=== PATIENT | female | born 1950 | race Caucasian/White ===

== ENCOUNTER → 2017-02-24 | Outpatient (CLI) | payer MEDICARE, BC ==
--- NOTE | 2017-02-25 10:06 | MM ---
Reason for exam: screening (asymptomatic). Last mammogram was performed 3 years and 1 month ago. History: Patient is postmenopausal. Physical Findings: A clinical breast exam by your physician is recommended on an annual basis and results should be correlated with mammographic findings. MG 3D Screening Mammo W/Cad Bilateral CC and MLO view(s) were taken. Prior study comparison: January 13, 2014, bilateral digital screening mammo w/CAD. There are scattered fibroglandular densities. No significant changes when compared with prior studies. ASSESSMENT: Benign, BI-RAD 2 RECOMMENDATION: Routine screening mammogram of both breasts in 1 year.
== END | disposition home or self-care (01) ==
LOC: RADMAMWWP 15:03
PROVIDERS: ATTEND Internal Medicine
DX: Z12.31 Encounter for screening mammogram for malignant neoplasm of breast (principal)
CPT/HCPCS: 77063; G0202

== ENCOUNTER → 2019-09-06 | Outpatient (CLI) | payer MEDICARE, BC ==
--- NOTE | 2019-09-06 11:03 | XR ---
EXAMINATION TYPE: XR lumbosacral spine min 4V DATE OF EXAM: 09/06/2019 CLINICAL HISTORY: Back pain TECHNIQUE: Frontal, lateral, and oblique images of the lumbar spine are obtained. COMPARISON: None FINDINGS: There is a levoscoliosis of the lumbar spine. Moderate multilevel degenerative disc disease is seen as small anterior osteophytes, intervertebral disc space narrowing, and multilevel pronounce d facet arthropathy from L3 through S1. Very minimal 1 mm anterolisthesis is seen of L4 on L5. Mild a therosclerosis of the abdominal aorta. Vertebral body heights are maintained. Oblique images demonstr ate no evidence of pars and articularis defect. Multilevel neural foraminal narrowing is seen that wo uld be better evaluated on MRI. Diffuse osseous demineralization is seen. No overlying dilated bowel. Sacroiliac joints are symmetric. IMPRESSION: 1. No acute fracture is seen in the lumbar spine. 2. Mild levoscoliosis of the lumbar spine. 3. Moderate multilevel degenerative disc disease with pronounced facet arthropathy of the lower lumba r spine from L3 through S1. 4. Minimal grade 1 anterolisthesis of L4-L5, likely on a degenerative cyst.
== END | disposition home or self-care (01) ==
LOC: RADXRYALE 10:08
PROVIDERS: ATTEND Internal Medicine
DX: M43.16 Spondylolisthesis, lumbar region (principal); M51.37 Other intervertebral disc degeneration, lumbosacral region; M46.97 Unspecified inflammatory spondylopathy, lumbosacral region; M41.86 Other forms of scoliosis, lumbar region
CPT/HCPCS: 72110

== ENCOUNTER → 2020-07-13 | Outpatient (CLI) | payer MEDICARE, BC ==
[2020-07-13 15:03] VITALS: RESP 16; BMI 39.0
[2020-07-13 15:36] LABS: HCT 40.7 % (34.0-46.0); HGB 12.9 gm/dL (11.4-16.0); MCH 29.1 pg (25.0-35.0); MCHC 31.8 g/dL (31.0-37.0); MCV 91.6 fL (80.0-100.0); Mean Platelet Volume 7.8; Platelet Count 299 k/uL (150-450); RBC 4.44 m/uL (3.80-5.40); WBC 8.7 k/uL (3.8-10.6)
[2020-07-13 15:45] VITALS: BP 162/82; PULSE 77; TEMP 98.1
[2020-07-13 19:05] LABS: Albumin 4.3 g/dL (3.80-4.90); Albumin/Globulin Ratio 2.05 (1.60-3.17); Calcium 9.6 mg/dL (8.7-10.3); Globulin 2.1 g/dL (1.6-3.3); Non-African American GFR(CKD) 74.2 (60.0-200.0); Potassium 4.4 mmol/L (3.5-5.5); Total Bilirubin 0.3 mg/dL (0.2-1.2); Total Protein 6.4 g/dL (6.2-8.2)
--- NOTE | 2020-07-13 19:11 | P.HPBAR ---
Bariatric H&P - History & Physicial H&P Date: 07/13/20 History & Physicial: Visit/CC: Initial Patient initial contact: Initial weight: 109.769 kg Initial weight in pounds: 242.00 Height: 5 ft 6 in Initial BMI: 39.0 Last weight: Current weight: 109.769 kg Current weight in pounds: 242.00 Current BMI: 39.0 [place] body weight (based on NIH guidelines): 58.967 kg Excess body weight loss: 0.0% The patient is a 69 year-old F who presents for Bariatric Assessment. Patient presents today with her . They're both here for a new bariatric evaluation. She is most interested in sleeve gastrectomy. Patient suffers from hypertension, hypercholesterolemia, ostial arthritis, chronic back pain, mild reflux. No history of DVT or dysphagia. No tobacco use. BMI 39. Abdominal surgeries including hysterectomy. States she had an upper endoscopy approximately 5 years ago which was normal. Review of Systems The patient denies any acute changes in vision or hearing, no dysphagia or odynophagia, no chest pain or shortness of breath, no dysuria or hematuria, no headache, no runny nose, no rectal bleeding or melena, no unexplained weight loss Past Medical History Past Medical History: Hyperlipidemia, Hypertension, Osteoarthritis (OA) History of Any Multi-Drug Resistant Organisms: None Reported Past Surgical History: Bladder Surgery, Hysterectomy Additional Past Surgical History / Comment(s): bladder suspension Past Anesthesia/Blood Transfusion Reactions: No Reported Reaction Past Psychological History: No Psychological Hx Reported Smoking Status: Never smoker Past Drug Use History: None Reported Surgical - Exam Vital Signs Temp Pulse Resp BP 98.1 F 77 16 162/82 07/13/20 14:59 07/13/20 14:59 07/13/20 14:59 07/13/20 14:59 Physical exam: General: Well-developed, well-nourished HEENT: Normocephalic, sclerae nonicteric Abdomen: Nontender, nondistended Extremities: No edema Neuro: Alert and oriented Results - Labs 07/13/20 15:11 07/13/20 15:11 Abnormal Lab Results - Last 24 Hours (Table) 07/13/20 Range/Units 15:11 BUN/Creatinine Ratio 25.00 H (12.00-20.00) Ratio Iron 42 L (50-170) ug/dL Diabetes panel 07/13/20 Range/Units 15:11 Sodium 143 (135-145) mmol/L Potassium 4.4 (3.5-5.5) mmol/L Chloride 109 (96-109) mmol/L Carbon Dioxide 27.0 (21.6-31.8) mmol/L BUN 20.0 (9.0-27.0) mg/dL Creatinine 0.8 (0.6-1.5) mg/dL Glucose 108 (70-110) mg/dL Calcium 9.6 (8.7-10.3) mg/dL AST 21 (13-35) U/L ALT 19 (8-44) U/L Alkaline Phosphatase 87 (41-126) U/L Total Protein 6.4 (6.2-8.2) g/dL Albumin 4.30 (3.80-4.90) g/dL Calcium panel 07/13/20 Range/Units 15:11 Calcium 9.6 (8.7-10.3) mg/dL Albumin 4.30 (3.80-4.90) g/dL Pituitary panel 07/13/20 Range/Units 15:11 Sodium 143 (135-145) mmol/L Potassium 4.4 (3.5-5.5) mmol/L Chloride 109 (96-109) mmol/L Carbon Dioxide 27.0 (21.6-31.8) mmol/L BUN 20.0 (9.0-27.0) mg/dL Creatinine 0.8 (0.6-1.5) mg/dL Glucose 108 (70-110) mg/dL Calcium 9.6 (8.7-10.3) mg/dL Adrenal panel 07/13/20 Range/Units 15:11 Sodium 143 (135-145) mmol/L Potassium 4.4 (3.5-5.5) mmol/L Chloride 109 (96-109) mmol/L Carbon Dioxide 27.0 (21.6-31.8) mmol/L BUN 20.0 (9.0-27.0) mg/dL Creatinine 0.8 (0.6-1.5) mg/dL Glucose 108 (70-110) mg/dL Calcium 9.6 (8.7-10.3) mg/dL Total Bilirubin 0.3 (0.2-1.2) mg/dL AST 21 (13-35) U/L ALT 19 (8-44) U/L Alkaline Phosphatase 87 (41-126) U/L Total Protein 6.4 (6.2-8.2) g/dL Albumin 4.30 (3.80-4.90) g/dL Bariatric Assessment & Plan (1) Morbid obesity Narrative/Plan: 69-year-old female with complaints of obesity. She is interested in sleeve gastrectomy. Risks and benefits of the surgical options reviewed in detail with the patient today. All questions answered. We'll proceed with upper endoscopy in the near future. We'll see the patient back in the office prior to surgical scheduling. Status: Acute Bariatric Checklist Checklist: Plan: Checklist: EGD: 1. Hiatal hernia: 2. H. Pylori: HgbA1c: Vitamin D: Smoking: Primary care physician referral: Mario Psychiatry clearance: Cardiology clearance: Sleep study: Diet journal: VTE risk score: VTE risk level: Rehab needs at discharge:
[2020-07-13 19:50] LABS: Folate, Serum 10.9 ng/mL
== END | disposition home or self-care (01) ==
LOC: BARWHC3 14:38
PROVIDERS: ATTEND Surgery
DX: E66.01 Morbid (severe) obesity due to excess calories (principal); Z68.39 Body mass index [BMI] 39.0-39.9, adult; K90.89 Other intestinal malabsorption
CPT/HCPCS: 84425; 80053; 82607; 82746; 83540; 85027; 82306; 83036; 93005; 36415; G0463; 99201

== ENCOUNTER → 2021-05-14 | Outpatient (CLI) | payer MEDICARE, BC ==
--- NOTE | 2021-05-16 14:55 | MM ---
Reason for exam: screening (asymptomatic). Last mammogram was performed 4 years and 3 months ago. History: Patient is postmenopausal. Physical Findings: A clinical breast exam by your physician is recommended on an annual basis and results should be correlated with mammographic findings. MG 3D Screening Mammo W/Cad Bilateral CC, MLO, and XCCL view(s) were taken. Prior study comparison: February 24, 2017, bilateral MG 3d screening mammo w/cad. January 13, 2014, bilateral digital screening mammo w/CAD. The breast tissue is almost entirely fat. No significant changes when compared with prior studies. ASSESSMENT: Benign, BI-RAD 2 RECOMMENDATION: Routine screening mammogram of both breasts in 1 year.
== END | disposition home or self-care (01) ==
LOC: RADMAMWWP 14:57
PROVIDERS: ATTEND Internal Medicine
DX: Z12.31 Encounter for screening mammogram for malignant neoplasm of breast (principal); Z78.0 Asymptomatic menopausal state
CPT/HCPCS: 77063; 77067

== ENCOUNTER → 2021-06-04 | Outpatient (CLI) | payer MEDICARE, BC | END | disposition home or self-care (01) | CPT/HCPCS: 76700 ==

== ENCOUNTER → 2021-10-16 | Outpatient (CLI) | payer MEDICARE, BC ==
--- NOTE | 2021-10-17 04:36 | US ---
EXAMINATION TYPE: US venous doppler duplex LE RT DATE OF EXAM: 10/16/2021 4:08 PM COMPARISON: NONE CLINICAL HISTORY: 70-year-old female R22.41 Swelling right leg. SIDE PERFORMED: Right TECHNIQUE: The lower extremity deep venous system is examined utilizing real time linear array sonog kael with graded compression, doppler sonography and color-flow sonography. FINDINGS: VESSELS IMAGED: Common Femoral Vein Deep Femoral Vein Greater Saphenous Vein * Femoral Vein Popliteal Vein Small Saphenous Vein * Proximal Calf Veins (* superficial vessels) Right Leg: Negative for DVT Console Operator notes: Probable Serrato's cyst measuring 1.6 x 1.3 x 1.3cm IMPRESSION: 1. No evidence for DVT within the right lower extremity imaged from the groin to the upper calf. 2. A 1.6 cm fluid locule in the popliteal fossa may represent a Serrato's cyst. Consider MRI to confirm .
== END | disposition home or self-care (01) ==
LOC: RADUSWWP 15:39
PROVIDERS: ATTEND Internal Medicine
DX: R22.41 Localized swelling, mass and lump, right lower limb (principal)

== ENCOUNTER → 2023-11-18 | Outpatient (CLI) | payer MEDICARE, BC ==
--- NOTE | 2023-11-18 17:42 | BD ---
EXAMINATION TYPE: Axial Bone Density DATE OF EXAM: 11/18/2023 CLINICAL HISTORY: 72 years old Female. ICD-10 CODE: N95.1 MENOPAUSAL AND PERIMENOPAUSAL Height: 64 Weight: 221.3 FRAX RISK QUESTIONS: Alcohol (3 or more units per day): no Family History (Parent hip fracture): no Glucocorticoids (More than 3mos): no (Ex: prednisone, prednisolone, methylprednisolone, dexamethasone, and hydrocortisone). History of Fracture in Adulthood: no Secondary Osteoporosis: 1. Type 1 Diabetes: no 2. Hyperthyroidism: no 3. Menopause before 45: no 4. Malnutrition: no 5. Chronic liver disease: no Rheumatoid Arthritis: no Current Tobacco Use: no RISK FACTORS HISTORY OF: Surgery to Spine/Hip(right/left)/Wrist (right/left): no Additional History: EXAM MEASUREMENTS: Bone mineral densitometry was performed using the [employer] System. Bone mineral density as measured about the Lumbar spine is: ----- L1-L4(G/cm2): 1.458 T Score Values are as follows: ----- L1: 0.7 ----- L2: 1.3 ----- L3: 2.9 ----- L4: 3.9 ----- L1-L4: 2.3 Z Score Values are as follows: ----- L1: 1.3 ----- L2: 1.9 ----- L3: 3.5 ----- L4: 4.5 ----- L1-L4: 2.9 Bone mineral density : baseline Bone mineral density about the R hip (g/cm2): 0.992 Bone mineral density about the L hip (g/cm2): 0.981 T Score values are as follows: -----R Neck: -1.1 -----L Neck: -0.9 -----R Total: -0.1 -----L Total: -0.2 Z Score values are as follows: -----R Neck: 0.1 -----L Neck: 00.3 -----R Total: 0.8 -----L Total: 0.7 Bone mineral density : baseline FRAX%s: The graph provided illustrates a 8.8% chance for a major osteoporotic fx and a 1.3% chance fo r the hips probability for fx in 10 years time. IMPRESSION: Osteopenia (T Score between -2.5 and -1). There is slightly increased risk of fracture and the patient may be considered for treatment. Re-Screen 2-5 years. NOTE: T-SCORE=SD OF THE YOUNG ADULT MEAN.
--- NOTE | 2023-11-19 17:12 | MM ---
Reason for Exam: Screening (asymptomatic). Last mammogram was performed 2 year(s) and 6 month(s) ago. Patient History: Menarche at age 12. First Full-Term at age 18. Hysterectomy at age 63. Postmenopausal. Risk Values: Heidy 5 year model risk: 1.4%. NCI Lifetime model risk: 3.3%. Prior Study Comparison: 01/13/2014 Bilateral Screening Mammogram, [facility]. 02/24/2017 Bilateral Screening Mammogram, [facility]. 05/14/2021 Bilateral Screening Mammogram, [facility]. Tissue Density: There are scattered fibroglandular densities. Findings: Analyzed By CAD. There is no suspicious group of microcalcifications or new suspicious mass in either breast. Overall Assessment: Negative, BI-RAD 1 Management: Screening Mammogram of both breasts in 1 year. . Patient should continue monthly self-breast exams. A clinical breast exam by your physician is recommended on an annual basis. This exam should not preclude additional follow-up of suspicious palpable abnormalities. Note on Heidy scores and lifetime risk: 1. A Heidy score greater than 3% is considered moderate risk. If this is the case, consider specialist referral to assess eligibility for a risk reducing agent. 2. If overall lifetime risk for the development of breast cancer is 20% or higher, the patient may qualify for future screening with alternating mammogram and breast MRI. Electronically signed and approved by: Anna Griffiths M.D. Radiologist
== END | disposition home or self-care (01) ==
LOC: RADBDWWP 12:28
PROVIDERS: ATTEND Internal Medicine
DX: Z12.31 Encounter for screening mammogram for malignant neoplasm of breast (principal); N95.8 Other specified menopausal and perimenopausal disorders; M85.851 Other specified disorders of bone density and structure, right thigh; Z78.0 Asymptomatic menopausal state
CPT/HCPCS: 77063; 77067; 77080

== ENCOUNTER → 2023-12-18 | Outpatient (CLI) | payer MEDICARE, BC ==
--- NOTE | 2023-12-18 13:04 | XR ---
EXAMINATION TYPE: XR lumbosacral spine 5 views DATE OF EXAM: 12/18/2023 Comparison: 09/06/2019 Clinical History: 72-year-old female [id number] LBP Findings: Moderate degenerative disc disease L5-S1 with disc space narrowing and endplate spondylosis/sclerosis . There is advanced hypertrophic facet arthropathy especially mid to lower lumbar spine. Degenerative grade 1 retrolisthesis L2-L3 and grade 1 anterolisthesis L4-L5. Vertebral body heights a re preserved. Slight rotary levoconvex curvature of the lumbar spine redemonstrated. There appears to be a slightly degenerative assimilation joint on the left at L5-S1. Impression: 1. Slight rotary levoconvex scoliosis lumbar spine. There appears to be a degenerative assimilation j oint on the left at L5-S1. 2. Advanced hypertrophic facet arthropathy especially mid to lower lumbar spine. Degenerative grade 1 spondylolisthesis L2/L3 and L4-L5. 3. Moderate degenerative disc disease L5-S1. 4. No vertebral compression collapse.
== END | disposition home or self-care (01) ==
LOC: RADXRYALE 09:02
PROVIDERS: ATTEND Internal Medicine
DX: M51.37 Other intervertebral disc degeneration, lumbosacral region (principal); M47.816 Spondylosis without myelopathy or radiculopathy, lumbar region; M43.16 Spondylolisthesis, lumbar region; M41.86 Other forms of scoliosis, lumbar region
CPT/HCPCS: 72110

== ENCOUNTER → 2024-01-10 | Outpatient (CLI) | payer MEDICARE, BC ==
--- NOTE | 2024-01-10 15:44 | MR ---
EXAMINATION TYPE: MR lumbar spine wo con DATE OF EXAM: 01/10/2024 COMPARISON: Outside lumbar spine x-ray series 06/19/2024 HISTORY: Low back pain, saurabh hip/leg pain TECHNIQUE: Multiplanar, multisequence imaging of the lumbar spine is performed without IV contrast. FINDINGS: Scoliosis is redemonstrated. Persistent grade 1 anterolisthesis L4 on L5. Sagittal images o f the lumbar spine show vertebral body heights to remain satisfactory. Multilevel disc desiccation is redemonstrated. Mild disc space narrowing at L3-L4 level is again seen. Moderate disc space narrowin g at L5-S1 level is redemonstrated with heterogeneous Modic type II endplate changes along the left a spect. The conus medullaris is normal in position and signal ending at L1-L2 level. Axial images at T12-L1 level appear within normal limits. Axial images at L1-L2 level shows mild broad-based disc bulge minimally effacing the anterior thecal sac along with mild facet arthropathy bilaterally. Mild effacement of the right posterior lateral the cesar sac is seen. Patent bilateral neural foramina. Axial images at L2-L3 level show mild to moderate facet arthropathy ligamentum flavum hypertrophy eff acing the posterior lateral thecal sac. Pain bilateral neural foramina are seen. Axial images at L3-L4 level shows mild/moderate broad-based posterior disc protrusion effacing anteri or thecal sac. There is moderate facet arthropathy and ligamentum flavum hypertrophy effacing the pos terolateral thecal sac greater on the right. There is mild bilateral neural foraminal narrowing. Axial images at L4-L5 level show spondylolisthesis with broad-based posterior disc protrusion minimal ly effacing anterior thecal sac along with moderate facet arthropathy and ligament hypertrophy effaci ng the posterior lateral thecal sac. Bilateral neural foramina are patent. Axial images at L5-S1 level shows mild/moderate left greater than right facet arthropathy. There is b road-based posterior disc protrusion with left lateral protrusion component causing advanced neural f oraminal narrowing and encroachment on the left L5 nerve. Right-sided neural foramina is patent. Paraspinal muscle bulk is maintained. Some simple central parapelvic cysts in the left kidney are fel t likely. There is round 8 mm T2 hypointense lesion in the right kidney axial image 26 could reflect thin-walled proteinaceous or hemorrhagic cyst. IMPRESSION: Multilevel degenerative changes in the lumbar spine as detailed above. Attention to the L 5-S1 level where eccentric disc herniation causes encroachment on the left L5 nerve. Correlate clinic ally for left L5 radiculopathy type symptoms.
== END | disposition home or self-care (01) ==
LOC: RADMRIMAIN 14:35
PROVIDERS: ATTEND Orthopaedic Surgery
DX: M47.816 Spondylosis without myelopathy or radiculopathy, lumbar region (principal); M51.27 Other intervertebral disc displacement, lumbosacral region
CPT/HCPCS: 72148

== ENCOUNTER → 2024-03-10 | Outpatient (CLI) | payer MEDICARE, BC ==
[2024-03-10 10:54] VITALS: BP 180/111; PULSE 77; RESP 15; TEMP 98.5
--- NOTE | 2024-03-10 13:48 | P.PAINPG ---
PQRS Measure Charge Sheet Comment: HISTORY OF PRESENT ILLNESS: A 73 yr old female w at side as a referral from [facility] presents today w severe and chronic LBP x 3 mo secondary to DDD, spondylosis and facet arthropathy without myelopathy for evaluation. Pt is interested in an injection before she goes forward w a decision about surgery. Pt states pain level is provoked at 9 /10 in intensity, constant, localized in the lumbar spine, predominantly axial, achy in character w occasional shooting pain towards the LLE. Pain is provoked by PT x 2 visits in 2022 which provoked intractable pain, standing and laying supine in certain positions. Pain is alleviated by heat, ice, medications (Naproxen, Flexeril 5mg #90, Neurontin 150mg #60), repositioning and rest. Oswestry axial pain score at 28. PMH: OA, Hyperlipidemia, HTN, GERD, OP, OAB PSH: Bladder Suspension, Hysterectomy SH: Negative x3 FH: Non contributory All: See list Meds: See list REVIEW OF ORGAN SYSTEMS: CONSTITUTIONAL: No fevers or chills. No recent weight loss. NEUROLOGICAL: + numbness and tingling along the distal extremities. No seizure disorders or headaches. MUSCULOSKELETAL: + pain PSYCHIATRIC: Denies current depression or suicidal tho ughts. Physical Examinations : Constitutional : Cooperative , not in acute distress . Neurologic : Cranial nerve II to XII intact. No focal neurological deficits. Psychiatric : alert & oriented x 3. Matching mood & appropriate affect. Judgment & insight intact. Musculoskeletal : Cervical Spine Motor strength in the deltoid and biceps: Normal right side. Normal Left side Motor strength biceps and the wrist extensors: Normal right side . Normal left side Motor strength in the triceps muscle: Normal right side. Normal left side Deep tendon reflexes: Normal at the biceps. Normal at Brachioradialis. Normal at triceps Vertebral body tenderness to deep palpation over Cervical facet loading test: positive bilaterally Spurling test: positive bilaterally Neck distraction test: positive bilaterally Camille sign: positive bilaterally Lumbar spine Motor strength lower extremities ,thigh and legs 5/5 Right side , 5/5 Left side Deep tendon reflexes : Normal Knee Jerk. Normal Ankle Jerk Vertebral body tenderness over L5 Shelton Test positive L5-S1 Lumbar facet Loading Test: positive Right / positive Left Range of motion of the lumbar spine Flexion 30 degrees, extension 10 degrees Straight Leg Raise test: Left/ Right positive at degree Simin test: positive right / positive left. Severe tenderness over the Sacroiliac joint on the Right / Left sides Gaenslen test: positive bilaterally Seated flexion test: positive bilaterally. Sacral spine : Severe tenderness over the Sacroiliac joint: right side / left side Range of motion: Flexion of the lumbar spine <60 degrees Range of motion: Extension of the lumbar spine <20 degrees Gaenslen's Test positive Simin test: positive right side / left side Thigh Thrust Test Sacral Thrust Test Imaging: MRI noncontrast of the lumbar spine from 01/10/2024 reviewed Assessment/ Plan : Lumbar DDD Recommendation of OTONIEL L5-S1 #1. May need a series of injections for optimal pain relief. Risks, benefits of procedure discussed and patient verbalized understanding. Admits to anti- coagulant use or medical history of diabetes. Protocol for discontinuation/ continuation of medications giana procedure discussed. All questions answered. I have spent greater than 30 minutes on patient care today. Dr Ortez was available by phone for the evaluation of this patient. The time was used to review the medical records including relevant urine studies and Prescription history (MAPs), review of the available imaging, evaluation and examination of the patient, coordination of care with the medical staff and if applicable referring physicians, as well as creation of the medical record Home Medications: Ambulatory Orders Ascorbic Acid [Vitamin C] 500 mg PO DAILY 07/13/20 Aspirin 81 mg PO BID 07/13/20 Calcium Carbonate [Calcium] 600 mg PO DAILY 07/13/20 Iron 64 mg PO DAILY 07/13/20 Naproxen [Naprosyn] 500 mg PO DIRECTED 07/13/20 Pravastatin Sodium [Pravachol] 40 mg PO DAILY 07/13/20 amLODIPine BESYLATE/BENAZEPRIL [amLODIPine BESYLATE/BENAZEPRIL 5-10 MG] 1 tab PO DAILY 07/13/20 oxyBUTYnin chloride [Ditropan] 5 mg PO DAILY 07/13/20 Controlled Substance Measures - Controlled Substance Measures Is patient prescribed a controlled substance at discharge?: No
== END ==
LOC: PNWHC3 09:34
PROVIDERS: ATTEND Specialist
DX: M51.37 Other intervertebral disc degeneration, lumbosacral region (principal)
CPT/HCPCS: 99211

== ENCOUNTER 2024-03-16 08:15 | Day surgery (SDC) | payer MEDICARE, BC ==
[2024-03-12 13:39] VITALS: BMI 33.3
[~2024-03-16 08:15] MED LIST: LACTATED RINGERS 1,000 ML IV SCH
[2024-03-16 09:27] VITALS: TEMP 97.5
[2024-03-16] MEDS ORDERED: methylPREDNISolone ACETATE 40 MG/ML 1 ML VIAL ONE (09:40)
[2024-03-16] MEDS ORDERED: IOPAMIDOL M200 10 ML VIAL ONE (09:40)
--- NOTE | 2024-03-16 09:47 | P.PCN ---
Date of Procedure: 03/16/24 Procedure(s) Performed: PREOPERATIVE DIAGNOSIS: 1- Lumbar Degenerative Disc Diseases 2-Lumbar spondylosis with Facet arthropathy without myelopathy. POSTOPERATIVE DIAGNOSIS: 1-lumbar degenerative disc disease. 2-lumbar spondylosis with facet arthropathy without myelopathy. PROCEDURE 1. Lumbar epidural steroid injection under fluoroscopic guidance at the L5-S1 level. (Fluoroscopy imaging was available in radiology department) 2. Lumbar epidurogram. ANESTHESIA: Lidocaine 1% 3 and then only. EBL: Minimal PROCEDURE INDICATION: The patient with low back pain and radiculitis symptoms unresponsive to conservative treatment. Fluoroscopy was used to optimize visualization of the needle placement and to maximize safety. PROCEDURE DESCRIPTION / TECHNIQUE: The patient was seen and identified in the preoperative area. Risks, benefits, complications including but not limited to infections ,bleeding ,allergic reaction to the medications ,nerve damage and not complete pain releife , and alternatives were discussed with the patient. The patient agreed to proceed with the procedure and signed the consent, and vital signs were stable. Patient was taken to the OR and time out was completed. The patient was placed in the prone position on procedure table and a pillow was placed under the abd omen to reduce lumbar lordosis. The lumbosacral area was prepped and draped in the usual sterile fashion.ere closely monitored during the procedure. Vital signs was monitered during the entire procedure. Using anterior-posterior fluoroscopy, the L5-S1 interlaminar space was identified and the skin over this site was marked and then infiltrated with 1% lidocaine subcutaneously. Subsequently, a 20-gauge Tuohy epidural needle was inserted and advanced toward the epidural space using the ``Loss of resistance technique and guided by AP and lateral fluoroscopy. The correct needle position in the epidural space was verified with the injection of 2 mL of the water soluble contrast dye Isovue 200 contrast and observing an excellent epidurogram with the epidural spread of the dye, after negative aspiration for blood and CSF and in the absence of paresthesias. Again after negative aspiration, a 5 ml mixture containing 40 mg of Depo-medrol ( Preservetive Free ), and 2 ml of preservative free Normal Saline, and 2 ml of preservative free lidocaine 1% solution was injected and a washout of epidurogram was seen. Needle was withdrawn intact, skin was cleansed, and bandages were applied. COMPLICATIONS: None DISPOSITION / PLANS: The patient was placed in a supine position and transferred to the recovery area in a stable condition for observation. There was no evidence of lower extremity motor or sensory deficit after the procedure. Patient was discharged from the recovery room after meeting discharge criteria. Home discharge instructions were given to the patient by the staff. The patient was reexamined prior to discharge. The patient will schedule a follow up in the clinic in 2-4 weeks.
[2024-03-16 10:11] VITALS: RESP 18
[2024-03-16 10:56] VITALS: BP 110/74; PULSE 107
--- NOTE | 2024-03-16 15:55 | FL ---
EXAMINATION TYPE: FL guided pain mgmt statistic DATE OF EXAM: 03/16/2024 FLUOROSCOPY Fluoroscopy time of 2 seconds was used during lumbar epidural steroid injection. 1 image/s document/ s the procedure. .[id number] mGycm2 DAP
== END 2024-03-16 10:34 | disposition home or self-care (01) ==
LOC: ORPAIN 08:15
PROVIDERS: ATTEND Specialist
DX: M51.16 Intervertebral disc disorders with radiculopathy, lumbar region (principal); M47.26 Other spondylosis with radiculopathy, lumbar region
CPT/HCPCS: 62323; Q9966; J1010

== ENCOUNTER → 2024-04-07 | Outpatient (CLI) | payer MEDICARE, BC ==
[2024-04-07 12:10] VITALS: BP 129/85; PULSE 80; RESP 16; TEMP 97.5
--- NOTE | 2024-04-07 15:50 | P.PAINPG ---
PQRS Measure Charge Sheet Comment: HISTORY OF PRESENT ILLNESS: A 73 yr old female w at side presents today w severe and chronic LBP x 3 mo secondary to DDD, spondylosis and facet arthropathy without myelopathy for evaluation s/p OTONIEL L5-S1 #1. Pt states she experienced 0 % pain relief x 3 wks s/p procedure. Pt is interested in an injection before she goes forward w a decision about surgery. Pt states pain level is provoked at 9 /10 in intensity, constant, localized in the lumbar spine, predominantly axial, achy in character w occasional shooting pain towards the LLE. Pain is provoked by PT x 2 visits in 2022 which provoked intractable pain, standing and laying supine in certain positions. Pain is alleviated by heat, ice, medications, repositioning and rest. Oswestry axial pain score at 28. Interventional procedures include OTONIEL L5-S1 x1 Medications include Neurontin 150mg #60, Naproxen, Flexeril 5mg #90 REVIEW OF ORGAN SYSTEMS: CONSTITUTIONAL: No fevers or chills. No recent weight loss. NEUROLOGICAL: + numbness and tingling along the distal extremities. No seizure disorders or headaches. MUSCULOSKELETAL: + pain PSYCHIATRIC: Denies current depression or suicidal thoughts. Physical Examinations : Constitutional : Cooperative , not in acute distress . Neurologic : Cranial nerve II to XII intact. No focal neurological deficits. Psychiatric : alert & oriented x 3. Matching mood & appropriate affect. Judgment & insight intact. Musculoskeletal : Cervical Spine Motor strength in the deltoid and biceps: Normal right side. Normal Left side Motor strength biceps and the wrist extensors: Normal right side . Normal left side Motor strength in the triceps muscle: Normal right side. Normal left side Deep tendon reflexes: Normal at the biceps. Normal at Brachioradialis. Normal at triceps Vertebral body tenderness to deep palpation over Cervical facet loading test: positive bilaterally Spurling test: positive bilaterally Neck distraction test: positive bilaterally Camille sign: positive bilaterally Lumbar spine Motor strength lower extremities ,thigh and legs 5/5 Right side , 5/5 Left side Deep tendon reflexes : Normal Knee Jerk. Normal Ankle Jerk Vertebral body tenderness over L5 Shelton Test positive L5-S1 Lumbar facet Loading Test: positive Right / positive Left Range of motion of the lumbar spine Flexion 30 degrees, extension 10 degrees Straight Leg Raise test: Left/ Right positive at degree Simin test: positive right / positive left. Severe tenderness over the Sacroiliac joint on the Right / Left sides Gaenslen test: positive bilaterally Seated flexion test: positive bilaterally. Sacral spine : Severe tenderness over the Sacroiliac joint: right side / left side Range of motion: Flexion of the lumbar spine <60 degrees Range of motion: Extension of the lumbar spine <20 degrees Gaenslen's Test positive Simin test: positive right side / left side Thigh Thrust Test Sacral Thrust Test Imaging: MRI noncontrast of the lumbar spine from 01/10/2024 reviewed Assessment/ Plan : Lumbar DDD Recommendation of medication management Opiate/ Narcotic agreement signed 04/07/24. [place] 7.5/325mg #90 w 2 RF. Use, side effects, adverse reactions, safe storage discussed. Will follow up w Dr Plaza to explore additional treatment options. All questions answered. I have spent greater than 30 minutes on patient care today. Dr Ortez was available by phone for the evaluation of this patient. The time was used to review the medical records including relevant urine studies and Prescription hi story (MAPs), review of the available imaging, evaluation and examination of the patient, coordination of care with the medical staff and if applicable referring physicians, as well as creation of the medical record PQRS Narrative: Hx Alcohol Use (MH) No Home Medications: Ambulatory Orders Calcium Carbonate [Calcium] 600 mg PO DAILY 07/13/20 Iron 64 mg PO DAILY 07/13/20 Naproxen [Naprosyn] 500 mg PO BID 07/13/20 Pravastatin Sodium [Pravachol] 40 mg PO DAILY 07/13/20 amLODIPine BESYLATE/BENAZEPRIL [amLODIPine BESYLATE/BENAZEPRIL 5-10 MG] 1 tab PO DAILY 07/13/20 Cyclobenzaprine [Flexeril] 5 mg PO TID PRN 03/12/24 Omeprazole 20 mg PO DAILY 03/12/24 Oxybutynin Chloride [oxyBUTYnin chloride ER] 15 mg PO DAILY 03/12/24 Pregabalin 150 mg PO BID 03/12/24 HYDROcodone/APAP 7.5-325MG [[place] 7.5-325] 1 tab PO TID PRN 30 Days #90 tab 04/07/24 HYDROcodone/APAP 7.5-325MG [[place] 7.5-325] 1 tab PO TID PRN 30 Days #90 tab 04/07/24 HYDROcodone/APAP 7.5-325MG [[place] 7.5-325] 1 tab PO TID PRN 30 Days #90 tab 04/07/24 Controlled Substance Measures - Controlled Substance Measures Is patient prescribed a controlled substance at discharge?: Yes When asked, does pt state using other controlled substances?: Yes If prescribed controlled substance>3 days was MAPS reviewed?: Yes If Rx opioid, was Start Talking consent form obtained?: Yes Was information provided regarding opioid addiction?: Yes
== END ==
LOC: PNWHC3 09:54
PROVIDERS: ATTEND Specialist
DX: M51.37 Other intervertebral disc degeneration, lumbosacral region (principal); M47.817 Spondylosis without myelopathy or radiculopathy, lumbosacral region; G89.29 Other chronic pain
CPT/HCPCS: 99212

== ENCOUNTER → 2024-05-28 | Outpatient (CLI) | payer MEDICARE, BC ==
--- NOTE | 2024-06-03 12:12 | CT ---
EXAMINATION TYPE: CT lumbar spine wo con CT DLP: 1391.1 mGycm, Automated exposure control for dose reduction was used. DATE OF EXAM: 05/28/2024 12:13 PM COMPARISON: MRI lumbar spine 01/10/2024, lumbar sacral spine radiograph 12/18/2023. CLINICAL INDICATION:Female, 73 years old with history of M47.814 M54.16 RADICULOPATHY, LUMBAR REGION ; PHH, personal tobacco use TECHNIQUE: Multiple axial images were obtained from the midportion of T11 through the sacroiliac aguila nts. Soft tissue and bone windows in coronal and sagittal planes were obtained and reviewed. Contrast used: none. Oral contrast used: none. FINDINGS: Alignment: There are 5 lumbar type vertebral bodies. Grade 1 anterolisthesis of L4 on L5 without evid ence of pars defects. Minimal levocurvature of the lumbar spine. Bone: No evidence of fracture is identified. Degenerative changes of both SI joints with vacuum dise ase. Discs: T12-L1: No spinal canal or neural foraminal stenosis is identified. L1-L2: No spinal canal or neural foraminal stenosis is identified. L2-L3: Broad-based disc bulge with bilateral facet arthropathy resulting in mild central canal stenos is. Mild bilateral neural foraminal stenosis. L3-L4: Broad-based disc bulge with bilateral facet arthropathy resulting in moderate central canal st enosis. Mild to moderate bilateral neural foraminal stenosis. L4-L5: Grade 1 anterolisthesis with uncovering of the disc broad-based disc bulge with bilateral face t arthropathy resulting in moderate central canal stenosis. No significant neural foraminal stenosis. L5-S1: Broad-based disc bulge with calcification identified. Mild central canal narrowing. Bilateral facet arthropathy with severe left neural foraminal stenosis. Right neural foramen is patent. Left la teral prominent osteophyte identified.Vacuum disc disease identified. Other: Bilateral renal sinus cysts redemonstrated. IMPRESSION: 1. No evidence for spinal fracture. 2. Moderate multilevel degenerative disc disease and facet nephropathy described above. There is mode rate central canal stenosis at L3-L4 and L4-L5. Severe left neural foraminal stenosis at L5-S1 second lopez to facet arthropathy and large lateral osteophyte. 3. Grade 1 anterolisthesis L4-L5 redemonstrated.
== END | disposition home or self-care (01) ==
LOC: RADCTMAIN 11:48
PROVIDERS: ATTEND Orthopaedic Surgery
DX: M47.814 Spondylosis without myelopathy or radiculopathy, thoracic region (principal); M54.16 Radiculopathy, lumbar region; M43.16 Spondylolisthesis, lumbar region; M25.78 Osteophyte, vertebrae; M47.817 Spondylosis without myelopathy or radiculopathy, lumbosacral region; M48.061 Spinal stenosis, lumbar region without neurogenic claudication; M51.36 Other intervertebral disc degeneration, lumbar region
CPT/HCPCS: 72131

== ENCOUNTER → 2024-06-30 | Outpatient (CLI) | payer MEDICARE, BC ==
[2024-06-30 10:48] VITALS: BP 137/83; PULSE 79; RESP 16
--- NOTE | 2024-06-30 14:47 | P.PAINPG ---
PQRS Measure Charge Sheet Comment: HISTORY OF PRESENT ILLNESS: A 73 yr old female w at side presents today w severe and chronic LBP x 3 mo secondary to DDD, spondylosis and facet arthropathy without myelopathy for evaluation. Pt is interested in an injection before she goes forward w a decision about surgery. Pt states pain level is provoked at 9 /10 in intensity, constant, localized in the lumbar spine, predominantly axial, achy in character w occasional shooting pain towards the LLE. Pain is provoked by PT x 2 visits in 2022 which provoked intractable pain, standing and laying supine in certain positions. Pain is alleviated by heat, ice, medications, repositioning and rest. Pt to undergo lumbar surgery in Aug 2024. Oswestry axial pain score at 28. Interventional procedures include OTONIEL L5-S1 x1 (Mar 2024) Medications include [place] 7.5/325mg #90, Neurontin 150mg #60, Naproxen, Flexeril 5mg #90 REVIEW OF ORGAN SYSTEMS: CONSTITUTIONAL: No fevers or chills. No recent weight loss. NEUROLOGICAL: + numbness and tingling along the distal extremities. No seizure disorders or headaches. MUSCULOSKELETAL: + pain PSYCHIATRIC: Denies current depression or suicidal thoughts. Physical Examinations : Constitutional : Cooperative , not in acute distress . Neurologic : Cranial nerve II to XII intact. No focal neurological deficits. Psychiatric : alert & oriented x 3. Matching mood & appropriate affect. Judgment & insight intact. Musculoskeletal : Cervical Spine Motor strength in the deltoid and biceps: Normal right side. Normal Left side Motor strength biceps and the wrist extensors: Normal right side . Normal left side Motor strength in the triceps muscle: Normal right side. Normal left side Deep tendon reflexes: Normal at the biceps. Normal at Brachioradialis. Normal at triceps Vertebral body tenderness to deep palpation over Cervical facet loading test: positive bilaterally Spurling test: positive bilaterally Neck distraction test: positive bilaterally Camille sign: positive bilaterally Lumbar spine Motor strength lower extremities ,thigh and legs 5/5 Right side , 5/5 Left side Deep tendon reflexes : Normal Knee Jerk. Normal Ankle Jerk Vertebral body tenderness over L5 Shelton Test positive L5-S1 Lumbar facet Loading Test: positive Right / positive Left Range of motion of the lumbar spine Flexion 30 degrees, extension 10 degrees Straight Leg Raise test: Left/ Right positive at degree Simin test: positive right / positive left. Severe tenderness over the Sacroiliac joint on the Right / Left sides Gaenslen test: positive bilaterally Seated flexion test: positive bilaterally. Sacral spine : Severe tenderness over the Sacroiliac joint: right side / left side Range of motion: Flexion of the lumbar spine <60 degrees Range of motion: Extension of the lumbar spine <20 degrees Gaenslen's Test positive Simin test: positive right side / left side Thigh Thrust Test Sacral Thrust Test Imaging: MRI noncontrast of the lumbar spine from 01/10/2024 reviewed Assessment/ Plan : Lumbar DDD Recommendation of medication management Opiate/ Narcotic agreement signed 04/07/24. [place] 7.5/325mg #90 w 2 RF. UDS collected 06/30/24. Use, side effects, adverse reactions, safe storage discussed. Will follow up w Dr Plaza for upcoming lumbar surgery in Aug 2024. All questions answered. I have spent greater than 30 minutes on patient care today. Dr Ortez was available by phone for the evaluation of this patient. The time was used to review the medical records including relevant urine studies and Prescription history (MAPs), review of the available imaging, evaluation and examination of the patient, coordination of care with the medical staff and if applicable referring physicians, as well as creation of the medical record PQRS Narrative: Hx Alcohol Use (MH) No Home Medications: Ambulatory Orders Calcium Carbonate [Calcium] 600 mg PO DAILY 07/13/20 Iron 64 mg PO DAILY 07/13/20 Naproxen [Naprosyn] 500 mg PO BID 07/13/20 Pravastatin Sodium [Pravachol] 40 mg PO DAILY 07/13/20 amLODIPine BESYLATE/BENAZEPRIL [amLODIPine BESYLATE/BENAZEPRIL 5-10 MG] 1 tab PO DAILY 07/13/20 Cyclobenzaprine [Flexeril] 5 mg PO TID PRN 03/12/24 Omeprazole 20 mg PO DAILY 03/12/24 Oxybutynin Chloride [oxyBUTYnin chloride ER] 15 mg PO DAILY 03/12/24 Pregabalin 150 mg PO BID 03/12/24 HYDROcodone/APAP 7.5-325MG [[place] 7.5-325] 1 tab PO TID PRN 30 Days #90 tab 06/30/24 HYDROcodone/APAP 7.5-325MG [[place] 7.5-325] 1 tab PO TID PRN 30 Days #90 tab 06/30/24 HYDROcodone/APAP 7.5-325MG [[place] 7.5-325] 1 tab PO TID PRN 30 Days #90 tab 06/30/24 Controlled Substance Measures - Controlled Substance Measures Is patient prescribed a controlled substance at discharge?: Yes When asked, does pt state using other controlled substances?: Yes If prescribed controlled substance>3 days was MAPS reviewed?: Yes
== END ==
LOC: PNWHC3 10:01
PROVIDERS: ATTEND Specialist
DX: M51.37 Other intervertebral disc degeneration, lumbosacral region (principal); M47.817 Spondylosis without myelopathy or radiculopathy, lumbosacral region
CPT/HCPCS: 80307; G0463; 99211

== ENCOUNTER → 2024-08-12 | Outpatient (CLI) | payer MEDICARE, BC | END | disposition home or self-care (01) | LOC: LABPAT 11:38 | PROVIDERS: ATTEND Orthopaedic Surgery | DX: Z01.818 Encounter for other preprocedural examination | CPT/HCPCS: 36415; 86850; 86900; 86901; 87070 ==

== ENCOUNTER → 2024-08-20 | Outpatient (CLI) | payer MEDICARE, BC ==
[2024-08-13 09:58] VITALS: BMI 33.3
[~2024-08-20] MED LIST changes: +ACETAMINOPHEN TAB 500 MG TAB PO PRN; +GABAPENTIN 300 MG CAP PO PRN; +ONDANSETRON 4 MG/2 ML VIAL IVP PRN; +TRANEXAMIC 1,000 MG/100ML-NACL 1,000 MG in SALINE 1 100ML.BAG IVPB PRN; +VANCOMYCIN 1,500 MG in SODIUM CHLORIDE 0.9% 500 ML 500 ML IVPB PRN
--- NOTE | 2024-08-20 07:07 | P.HPOR ---
History of Present Illness H&P Date: 08/12/24 PREOPERATIVE VISIT CC: LOW BACK PAIN, LE WEAKNESS IMPRESSION: It was my pleasure to have seen and examined Steve. I reviewed the patient's clinical syndrome, physical findings, and imaging studies during the appointment today. It is my impression that the patient has a diagnosis of. 1. Grade I spondylolisthesis of L3 on L4, L4 on L5, and L5 on S1 2. L3-S1 spondylosis with stenosis 3. Bilateral lower extremity radiculopathy 4. Bilateral lower extremity weakness 5. Neurogenic claudication 6. Low back pain HISTORY: Ms. Pineda is presenting for evaluation of low back and bilateral lower extremity pain, bilateral lower extremity numbness, tingling, and weakness. It was my pleasure to have seen and examined Ms. Pineda. In our visit today we have had a chance to go over subjective complaints, physical examination findings and treatments including the natural course history without intervention and various interventional options. The patients imaging demonstrates: XR, MRI and CT of the patient's lumbar spine demonstrate multilevel degenerative spondylolisthesis that are unstable from L3-S1, grade I with stepwise kyphotic changes due to the slips and the degenerative collpase at each level with degenerative disc herniations causing central and b/l foraminal stenosis that is severe at all levels as well as facet hypertropy and facet osteophytosis that contribute to foraminal stenosis and lateral recess stenosis that is moderate to severe. There is b/l SIJ sclerosis noted with vacuum phenom at the SIJ b/l as well as L3-S1 disc spaces due to the collapse and slips. There are no fractures or lesions noted at this time. On physical exam, Ms. Pineda demonstrates: A continued sharp, throbbing pain across the entire low back that radiates down into the bilateral lower e xtremities wit a burning, aching quality. She notes her leg pain is associated with numbness and tingling bilaterally. She notes progressive bilateral leg weakness since the time of her last in office evaluation. She states she can only walk about 15 to 20 steps before having to take a break due to her worsening low back and leg pain. She notes her current symptoms worsen after all activity. She reports experiencing severe sleep disturbances related to her ongoing pain and associated symptoms. She states her symptoms have become intolerable. I have explained to the patient that as their condition progresses it will cause further neurological deficits and eventual paralysis. Based on the patients imaging, physical exam, and the rapid progression and disabling nature of their symptoms, at this time I recommend surgery in the form of a: L3-PELVIS DECOMPRESSION AND FUSION. I discussed the risk and benefits of this procedure at length with Ms. Pineda. The patient agreed to considered pursuing the procedure abovementioned. Prior to surgery, she should follow up with her PCP (Cardio, ID, IM etc) for clearance. Questions were invited and answered, and the patient wishes to proceed as outlined below. Currently, I am recommendin.L3-PELVIS DECOMPRESSION WITH POSTEROLATERAL AND INTERBODY FUSION ([id number], [id number], [id number], 79006, 77293, 92551, 24644, 73670, 80271, 63829, 99457, 45404, 60064) 2.Follow up with PCP for surgical clearance 3.Review of surgical risks and benefits as well as an educational packet on the proposed surgical procedure. Risks: All surgical procedures come with inherent risks, including those related to positioning, anesthesia, intraoperative findings, and postoperative complications. It is important to understand that surgery does not come with any guarantee of a successful outcome as complications and adverse events are always possible. The patient was given a handout in office today discussing the surgical procedure and risks associated with the intervention, both of which were discussed with the patient. These risks include but are not limited to the following: * Experiencing same, different or even worse symptoms in back, neck, arms, or legs compared to before surgery. Requiring further surgery or other forms of treatment presently or at some time in the future at same or other levels of the intended spine surgery. On an extreme but fortunately relatively rare basis severe complication such as blindness, stroke, heart attack, temporary and/or permanent nerve injury, paralysis, coma, or may occur, sometimes without known explanation. Surgical complications may include but are not limited to risk of infection, fluid accumulation in the surgical dissection site, including a seroma or hematoma, that requires additional surgery, wound drainage, bleeding, new numbness or weakness, vision changes/loss, spinal fluid leakage, non-healing and/or infected incision, headaches, difficulty or inability to swallow, hoarseness, hemopneumothorax, pneumothorax, impotence, retrograde ejaculation, vaginal dryness; injury to nerves, spinal cord, blood vessels, lymphatics or other vital organs (i.e., bowel injury, injury to the great vessels); heterotopic bone formation; complications related to the hardware such as screws, rods, cages including misplaced hardware, device failure, instrumentation at the wrong spine level, hardware fracture/breakage, or hardware loosening; vertebral failure of the spinal column above or below the newly placed hardware; retained surgical instrumentations or devices and the need for further surgery. * Medical risks of the planned spine surgery include but are not limited to generalized Infections to the whole body or local areas outside of the surgical site (sepsis), heart attack, bleeding, anaphylaxis, meningitis, seizure, epilepsy, hearing loss, burn otero, laceration of the head or other areas of the body, bruising, hypersensitivity of the skin, bladder over distension; allergic reaction; shoulder injury related to positioning; fat, blood and air clots to other areas of the body like heart, lungs, brain; failure of internal organs such as lungs, kidneys, liver and excessive bleeding. If blood transfusions are necessary, note that transfusions may cause intolerance reactions such as anaphylaxis or other complex reactions. Despite best efforts, the results of spine surgery might not heal in terms of bone, soft tissues such as skin, fascia, ligaments, and joints. Additionally, in order to achieve best possible results, spine surgery may be carried out beyond the initially planned levels and involve decompression, fusion including insertion of hardware at levels other than the original intended area of surgical interest change some portions of the procedure in order to ensure the best possible outcomes. With spine surgery and spinal fusion, there are different off label uses of instrumentation (devices, implants and hardware) as well as biological substances (bone morphogenic proteins, demineralized bone matrix) as well as using extra bone from allograft sources (i.e. cadaver bone) or autograft (iliac crest bone, ribs, or the spine itself). The patient has been given information about these practices and their inherent risks and benefits. [facility] is an educational center that serves as a training facility for neurosurgical and orthopedic TRANSPORTATION DEPARTMENT SUPERVISOR and Nursing students. Physician assistants are medically trained surgical providers who function in the outpatient, inpatient, and operating room setting under the direct supervision of the attending surgeon. [facility] has multiple operating rooms with single and overlapping rooms running daily. They currently function under the required guidelines as produced by the [facility] Finance Committee with regards to the overlapping rooms and will continue to comply with changes to this policy as they occur. The requirements include and are complied with as follows: (1) the critical portions of the overlapping rooms will not occur at the same time, (2) the attending physician will be physically present during the critical portions of the procedure and immediately available during the entire case, and (3) a back-up attending is designated should the primary attending not be immediately available. The patient has had a chance to review all the listed information, has been given print outs detailing this information, and has had all his/her questions answered to their satisfaction. It was my pleasure to have seen and examined Ms. Pineda. In our visit today we have had a chance to go over my understanding of our patient's current condition, the natural course history without intervention and various interventional options. Questions were invited and answered, and the patient wishes to proceed as outlined above. I have seen and examined the patient for 25 minutes and we have spent more than 50% of the time in repeat and detailed counseling about the patient's condition, its natural course history with out and as much as can be predicted with surgery and re-review of various surgical treatment options. In conclusion, Ms. Pineda requested we proceed with the above suggested surgery and are willing to accept risks and limitations of the suggested surgery as nature of the disease process and our best attempts at treatment for the condition. Thank you again for allowing us to be part of your patient's care. Please don't hesitate to contact me if you have any further questions. Past Medical History Past Medical History: GERD/Reflux, Hyperlipidemia, Hypertension, Osteoarthritis (OA) Additional Past Medical History / Comment(s): Thin skin. History of Any Multi-Drug Resistant Organisms: MRSA Date of last positivie culture/infection: 08/12/24 MDRO Source:: nasal Past Surgical History: Bladder Surgery, Cholecystectomy, Hysterectomy Additional Past Surgical History / Comment(s): Bladder suspension, colonoscopy. Past Anesthesia/Blood Transfusion Reactions: No Reported Reaction Smoking Status: Never smoker - Past Family History Father Family Medical History: Cancer Medications and Allergies Home Medications Medication Instructions Recorded Confirmed Type Calcium Carbonate [Calcium] 600 mg PO DAILY 07/13/20 08/13/24 History Naproxen [Naprosyn] 500 mg PO BID 07/13/20 08/13/24 History Pravastatin Sodium [Pravachol] 40 mg PO QAM 07/13/20 08/13/24 History amLODIPine BESYLATE/BENAZEPRIL 1 tab PO QAM 07/13/20 08/13/24 History [amLODIPine BESYLATE/BENAZEPRIL 5-10 MG] Omeprazole 20 mg PO QAM 03/12/24 08/13/24 History Oxybutynin Chloride [oxyBUTYnin 15 mg PO QAM 03/12/24 08/13/24 History chloride ER] Alendronate Sodium [Fosamax] 70 mg PO FR 08/13/24 08/13/24 History Ascorbic Acid [Vitamin C] 250 mg PO DAILY 08/13/24 08/13/24 History Ferrous Sulfate [Iron] 325 mg PO DAILY 08/13/24 08/13/24 History HYDROcodone/APAP 7.5-325MG [[place] 1 tab PO TID 08/13/24 08/13/24 History 7.5-325] Allergies Allergy/AdvReac Type Severity Reaction Status Date / Time No Known Allergies Allergy Verified 08/13/24 09:41 Physical Examination Osteopathic Statement: *. No significant issues noted on an osteopathic structural exam other than those noted in the History and Physical/Consult. Assessment and Plan (1) Lumbar spondylosis Status: Acute Code(s): M47.816 - SPONDYLOSIS W/O MYELOPATHY OR RADICULOPATHY, LUMBAR REGION SNOMED Code(s): 202856975 (2) Lumbar stenosis with neurogenic claudication Status: Acute Code(s): M48.062 - SPINAL STENOSIS, LUMBAR REGION WITH NEUROGENIC CLAUDICATION SNOMED Code(s): 25996381 (3) Spondylolisthesis, lumbar region Status: Acute Code(s): M43.16 - SPONDYLOLISTHESIS, LUMBAR REGION SNOMED Code(s): 071593093642688 (4) Weakness of lower extremity Status: Acute Code(s): R29.898 - OTH SYMPTOMS AND SIGNS INVOLVING THE MUSC ULOSKELETAL SYSTEM SNOMED Code(s): 044072945 (5) Low back pain Status: Acute Code(s): M54.50 - LOW BACK PAIN, UNSPECIFIED SNOMED Code(s): 067819637
[2024-08-20 08:40] VITALS: PULSE 96; RESP 16; TEMP 97.5
[2024-08-20 08:57] VITALS: BP 171/91
== END ==
LOC: UNDOADMIN 08:01 → 2ORMAIN 08:01 → EDSTATUS 10:15 → OR 10:15 → UNDODISIN 10:35
PROVIDERS: ATTEND Orthopaedic Surgery
DX: M48.062 Spinal stenosis, lumbar region with neurogenic claudication (principal); Z53.9 Procedure and treatment not carried out, unspecified reason

== ENCOUNTER → 2024-09-22 | Outpatient (CLI) | payer MEDICARE, BC ==
[2024-09-22 10:27] VITALS: BP 170/84; PULSE 96; RESP 16
--- NOTE | 2024-09-22 14:38 | P.PAINPG ---
PQRS Measure Charge Sheet Comment: HISTORY OF PRESENT ILLNESS: A 73 yr old female w at side presents today w severe and chronic LBP x 3 mo secondary to radiculopathy, spondylosis and facet arthropathy without myelopathy for evaluation. Pt states pain level is provoked at 8 /10 in intensity, constant, localized in the lumbar spine, predominantly axial, achy in character w occasional shooting pain towards the LLE. Pain is provoked by PT x 6 wks which ended in May 2024 and provoked intractable pain, standing and laying supine in certain positions. Pain is alleviated by heat, ice, medications, repositioning and rest. L3-Pelvis Decompression/ Fusion rescheduled as pt is currently on antibiotics for RLE ulceration. Interventional procedures include OTONIEL L5-S1 x1 (Mar 2024) Medications include [place] 7.5/325mg #90, Neurontin 150mg #60, Naproxen, Flexeril 5mg #90 REVIEW OF ORGAN SYSTEMS: CONSTITUTIONAL: No fevers or chills. No recent weight loss. NEUROLOGICAL: + numbness and tingling along the distal extremities. No seizure disorders or headaches. MUSCULOSKELETAL: + pain PSYCHIATRIC: Denies current depression or suicidal thoughts. Physical Examinations : Constitutional : Cooperative , not in acute distress . Neurologic : Cranial nerve II to XII intact. No focal neurological deficits. Psychiatric : alert & oriented x 3. Matching mood & appropriate affect. Judgment & insight intact. Musculoskeletal : Cervical Spine Motor strength in the deltoid and biceps: Normal right side. Normal Left side Motor strength biceps and the wrist extensors: Normal right side . Normal left side Motor strength in the triceps muscle: Normal right side. Normal left side Deep tendon reflexes: Normal at the biceps. Normal at Brachioradialis. Normal at triceps Vertebral body tenderness to deep palpation over Cervical facet loading test: positive bilaterally Spurling test: positive bilaterally Neck distraction test: positive bilaterally Camille sign: positive bilaterally Lumbar spine Motor strength lower extremities ,thigh and legs 5/5 Right side , 5/5 Left side Deep tendon reflexes : Normal Knee Jerk. Normal Ankle Jerk Vertebral body tenderness over L5 Shelton Test positive L5-S1 Lumbar facet Loading Test: positive Right / positive Left Range of motion of the lumbar spine Flexion 30 degrees, extension 10 degrees Straight Leg Raise test: Left/ Right positive at degree Simin test: positive right / positive left. Severe tenderness over the Sacroiliac joint on the Right / Left sides Gaenslen test: positive bilaterally Seated flexion test: positive bilaterally. Sacral spine : Severe tenderness over the Sacroiliac joint: right side / left side Range of motion: Flexion of the lumbar spine <60 degrees Range of motion: Extension of the lumbar spine <20 degrees Gaenslen's Test positive Simin test: positive right side / left side Thigh Thrust Test Sacral Thrust Test Imaging: MRI non contrast of the lumbar spine from 01/10/2024 reviewed Assessment/ Plan : Lumbar radiculopathy Recommendation of medication management Opiate/ Narcotic agreement signed 04/07/24. [place] 7.5/325mg #90 w 2 RF. UDS from 06/30/24 reviewed and consistent. Use, side effects, adverse reactions, safe storage discussed. All questions answered. I have spent greater than 30 minutes on patient care today. Dr Ortez was available by phone for the evaluation of this patient. The time was used to review the medical records including relevant urine studies and Prescription history (MAPs), review of the available imaging, evaluation and examination of the patient, coordination of care with the medical staff and if applicable referring physicians, as well as creation of the medical record - Pain Location Lower Back Non-Pharmacological Interventions: Heat, Ice, Physical Therapy Pharmacological Interventions: Scheduled Medication, Topical Medication PQRS Narrative: Hx Alcohol Use (MH) No Home Medications: Ambulatory Orders Calcium Carbonate [Calcium] 600 mg PO DAILY 07/13/20 Naproxen [Naprosyn] 500 mg PO BID 07/13/20 Pravastatin Sodium [Pravachol] 40 mg PO QAM 07/13/20 amLODIPine BESYLATE/BENAZEPRIL [amLODIPine BESYLATE/BENAZEPRIL 5-10 MG] 1 tab PO QAM 07/13/20 Omeprazole 20 mg PO QAM 03/12/24 Oxybutynin Chloride [oxyBUTYnin chloride ER] 15 mg PO QAM 03/12/24 Alendronate Sodium [Fosamax] 70 mg PO FR 08/13/24 Ascorbic Acid [Vitamin C] 250 mg PO DAILY 08/13/24 Ferrous Sulfate [Iron] 325 mg PO DAILY 08/13/24 Antibiotic (Unknown Name) 500 mg PO BID 08/26/24 HYDROcodone/APAP 7.5-325MG [[place] 7.5-325] 1 tab PO TID PRN 30 Days #90 tab HYDROcodone/APAP 7.5-325MG [[place] 7.5-325] 1 tab PO TID PRN 30 Days #90 tab 24 HYDROcodone/APAP 7.5-325MG [[place] 7.5-325] 1 tab PO TID PRN 30 Days #90 tab 09/22/24 Controlled Substance Measures - Controlled Substance Measures Is patient prescribed a controlled substance at discharge?: Yes When asked, does pt state using other controlled substances?: No If prescribed controlled substance>3 days was MAPS reviewed?: Yes
== END ==
LOC: PNWHC3 09:55
PROVIDERS: ATTEND Specialist
DX: M47.26 Other spondylosis with radiculopathy, lumbar region (principal)
CPT/HCPCS: 99211

== ENCOUNTER → 2024-12-22 | Outpatient (CLI) | payer MEDICARE, BC ==
[2024-12-22 09:43] VITALS: BP 167/95; PULSE 60; RESP 16; TEMP 97.3
--- NOTE | 2024-12-22 16:38 | P.PAINPG ---
PQRS Measure Charge Sheet Comment: HISTORY OF PRESENT ILLNESS: A 73 yr old female w at side presents today w severe and chronic LBP x 3 mo secondary to L3-Pelvis Decompression/ Fusion for medication refills. Pt states pain level is provoked at 8 /10 in intensity, constant, localized in the lumbar spine, predominantly axial, achy in character w occasional shooting pain towards the LLE. Pain is provoked by PT x 6 wks which ended in May 2024 and provoked intractable pain, standing and laying supine in certain positions. Pain is alleviated by heat, ice, medications, repositioning and rest. L3-Pelvis Decompression/ Fusion rescheduled as pt is currently on antibiotics for RLE ulceration. Interventional procedures include OTONIEL L5-S1 x1 (Mar 2024) Medications include [place] 7.5/325mg #90, Neurontin 150mg #60, Naproxen, Flexeril 5mg #90 REVIEW OF ORGAN SYSTEMS: CONSTITUTIONAL: No fevers or chills. No recent weight loss. NEUROLOGICAL: + numbness and tingling along the distal extremities. No seizure disorders or headaches. MUSCULOSKELETAL: + pain PSYCHIATRIC: Denies current depression or suicidal thoughts. Physical Examinations : Constitutional : Cooperative , not in acute distress . Neurologic : Cranial nerve II to XII intact. No focal neurological deficits. Psychiatric : alert & oriented x 3. Matching mood & appropriate affect. Judgment & insight intact. Musculoskeletal : Cervical Spine Motor strength in the deltoid and biceps: Normal right side. Normal Left side Motor strength biceps and the wrist extensors: Normal right side . Normal left side Motor strength in the triceps muscle: Normal right side. Normal left side Deep tendon reflexes: Normal at the biceps. Normal at Brachioradialis. Normal at triceps Vertebral body tenderness to deep palpation over Cervical facet loading test: positive bilaterally Spurling test: positive bilaterally Neck distraction test: positive bilaterally Camille sign: positive bilaterally Lumbar spine Motor strength lower extremities ,thigh and legs 5/5 Right side , 5/5 Left side Deep tendon reflexes : Normal Knee Jerk. Normal Ankle Jerk Vertebral body tenderness over L5 Shelton Test positive L5-S1 Lumbar facet Loading Test: positive Right / positive Left Range of motion of the lumbar spine Flexion 30 degrees, extension 10 degrees Straight Leg Raise test: Left/ Right positive at degree Simin test: positive right / positive left. Severe tenderness over the Sacroiliac joint on the Right / Left sides Gaenslen test: positive bilaterally Seated flexion test: positive bilaterally. Sacral spine : Severe tenderness over the Sacroiliac joint: right side / left side Range of motion: Flexion of the lumbar spine <60 degrees Range of motion: Extension of the lumbar spine <20 degrees Gaenslen's Test positive Simin test: positive right side / left side Thigh Thrust Test Sacral Thrust Test Imaging: MRI non contrast of the lumbar spine from 01/10/2024 reviewed Assessment/ Plan : L3-Pelvis Decompression/ Fusion, Lumbar radiculopathy Recommendation of medication management. Opiate/ Narcotic agreement signed 04/07/24. [place] 7.5/325mg #90 w 2 RF. UDS collected 12/22/24. Use, side effects, adverse reactions, safe storage discussed. All questions answered. I have spent greater than 30 minutes on patient care today. Dr Ortez was available by phone for the evaluation of this patient. The time was used to review the medical records including relevant urine studies and Prescription history (MAPs), review of the available imaging, evaluation and examination of the patient, coordination of care with the medical staff and if applicable referring physicians, as well as creation of the medical record PQRS Narrative: Hx Alcohol Use (MH) No Home Medications: Ambulatory Orders Calcium Carbonate [Calcium] 600 mg PO DAILY 07/13/20 Naproxen [Naprosyn] 500 mg PO BID 07/13/20 Pravastatin Sodium [Pravachol] 40 mg PO QAM 07/13/20 amLODIPine BESYLATE/BENAZEPRIL [amLODIPine BESYLATE/BENAZEPRIL 5-10 MG] 1 tab PO QAM 07/13/20 Omeprazole 20 mg PO QAM 03/12/24 Oxybutynin Chloride [oxyBUTYnin chloride ER] 15 mg PO QAM 03/12/24 Alendronate Sodium [Fosamax] 70 mg PO FR 08/13/24 Ascorbic Acid [Vitamin C] 250 mg PO DAILY 08/13/24 Ferrous Sulfate [Iron] 325 mg PO DAILY 08/13/24 Antibiotic (Unknown Name) 500 mg PO BID 08/26/24 HYDROcodone/APAP 7.5-325MG [[place] 7.5-325] 1 tab PO TID PRN 30 Days #90 tab 12/22/24 HYDROcodone/APAP 7.5-325MG [[place] 7.5-325] 1 tab PO TID PRN 30 Days #90 tab 12/22/24 HYDROcodone/APAP 7.5-325MG [[place] 7.5-325] 1 tab PO TID PRN 30 Days #90 tab 12/22/24 Controlled Substance Measures - Controlled Substance Measures Is patient prescribed a controlled substance at discharge?: Yes When asked, does pt state using other controlled substances?: No If prescribed controlled substance>3 days was MAPS reviewed?: Yes
== END ==
LOC: PNWHC3 09:10
PROVIDERS: ATTEND Specialist
DX: M54.16 Radiculopathy, lumbar region (principal); M43.26 Fusion of spine, lumbar region
CPT/HCPCS: 80307; G0463; 99212

== ENCOUNTER → 2025-03-16 | Outpatient (CLI) | payer MEDICARE, BC ==
[2025-03-16 09:55] VITALS: BP 145/77; PULSE 92; RESP 19; TEMP 97.2
--- NOTE | 2025-03-16 19:06 | P.PAINPG ---
PQRS Measure Charge Sheet Comment: HISTORY OF PRESENT ILLNESS: A 73 yr old female w at side presents today w severe and chronic LBP x 3 mo secondary to L3-Pelvis Decompression/ Fusion for medication refills. Pt states pain level is provoked at 8 /10 in intensity, constant, localized in the lumbar spine, predominantly axial, achy in character w occasional shooting pain towards the LLE. Pain is provoked by PT x 6 wks which ended in May 2024 and provoked intractable pain, standing and laying supine in certain positions. Pain is alleviated by heat, ice, medications, repositioning and rest. L3-Pelvis Decompression/ Fusion rescheduled to May 2025 as pt was on antibiotics for RLE ulceration. Interventional procedures include OTONIEL L5-S1 x1 (Mar 2024) Medications include [place] 7.5/325mg #90, Neurontin 150mg #60, Naproxen, Flexeril 5mg #90 REVIEW OF ORGAN SYSTEMS: CONSTITUTIONAL: No fevers or chills. No recent weight loss. NEUROLOGICAL: + numbness and tingling along the distal extremities. No seizure disorders or headaches. MUSCULOSKELETAL: + pain PSYCHIATRIC: Denies current depression or suicidal thoughts. Physical Examinations : Constitutional : Cooperative , not in acute distress . Neurologic : Cranial nerve II to XII intact. No focal neurological deficits. Psychiatric : alert & oriented x 3. Matching mood & appropriate affect. Judgment & insight intact. Musculoskeletal : Cervical Spine Motor strength in the deltoid and biceps: Normal right side. Normal Left side Motor strength biceps and the wrist extensors: Normal right side . Normal left side Motor strength in the triceps muscle: Normal right side. Normal left side Deep tendon reflexes: Normal at the biceps. Normal at Brachioradialis. Normal at triceps Vertebral body tenderness to deep palpation over Cervical facet loading test: positive bilaterally Spurling test: positive bilaterally Neck distraction test: positive bilaterally Camille sign: positive bilaterally Lumbar spine Motor strength lower extremities ,thigh and legs 5/5 Right side , 5/5 Left side Deep tendon reflexes : Normal Knee Jerk. Normal Ankle Jerk Vertebral body tenderness over L5 Shelton Test positive L5-S1 Lumbar facet Loading Test: positive Right / positive Left Range of motion of the lumbar spine Flexion 30 degrees, extension 10 degrees Straight Leg Raise test: Left/ Right positive at degree Simin test: positive right / positive left. Severe tenderness over the Sacroiliac joint on the Right / Left sides Gaenslen test: positive bilaterally Seated flexion test: positive bilaterally. Sacral spine : Severe tenderness over the Sacroiliac joint: right side / left side Range of motion: Flexion of the lumbar spine <60 degrees Range of motion: Extension of the lumbar spine <20 degrees Gaenslen's Test positive Simin test: positive right side / left side Thigh Thrust Test Sacral Thrust Test Imaging: MRI non contrast of the lumbar spine from 01/10/2024 reviewed Assessment/ Plan : L3-Pelvis Decompression/ Fusion, Lumbar radiculopathy Recommendation of medication management. Opiate/ Narcotic agreement signed 04/07/24. Add Neurontin 100mg, titrate up, #90 w 2 RF. [place] 7.5/325mg #90 w 2 RF. UDS from 12/22/24 reviewed and consistent. Use, side effects, adverse reactions, safe storage discussed. All questions answered. I have spent greater than 30 minutes on patient care today. Dr Ortez was available by phone for the evaluation of this patient. The time was used to review the medical records including relevant urine studies and Prescription history (MAPs), review of the available imaging, evaluation and examination of the patient, coordination of care with the medical staff and if applicable referring physicians, as well as creation of the medical record - Pain Location Lower Back Non-Pharmacological Interventions: Position/Reposition, Sitting PQRS Narrative: Hx Alcohol Use (MH) No Home Medications: Ambulatory Orders Calcium Carbonate [Calcium] 600 mg PO DAILY 07/13/20 Naproxen [Naprosyn] 500 mg PO BID 07/13/20 Pravastatin Sodium [Pravachol] 40 mg PO QAM 07/13/20 amLODIPine BESYLATE/BENAZEPRIL [amLODIPine BESYLATE/BENAZEPRIL 5-10 MG] 1 tab PO QAM 07/13/20 Omeprazole 20 mg PO QAM 03/12/24 Oxybutynin Chloride [oxyBUTYnin chloride ER] 15 mg PO QAM 03/12/24 Alendronate Sodium [Fosamax] 70 mg PO FR 08/13/24 Ascorbic Acid [Vitamin C] 250 mg PO DAILY 08/13/24 Ferrous Sulfate [Iron] 325 mg PO DAILY 08/13/24 Antibiotic (Unknown Name) 500 mg PO BID 08/26/24 Gabapentin [Neurontin] 100 mg PO TID 30 Days #90 cap 03/16/25 HYDROcodone/APAP 7.5-325MG [[place] 7.5-325] 1 tab PO TID PRN 30 Days #90 tab 03/16/25 HYDROcodone/APAP 7.5-325MG [[place] 7.5-325] 1 tab PO TID PRN 30 Days #90 tab 03/16/25 HYDROcodone/APAP 7.5-325MG [[place] 7.5-325] 1 tab PO TID PRN 30 Days #90 tab 03/16/25 Controlled Substance Measures - Controlled Substance Measures Is patient prescribed a controlled substance at discharge?: Yes When asked, does pt state using other controlled substances?: No If prescribed controlled substance>3 days was MAPS reviewed?: Yes
== END ==
LOC: PNWHC3 09:22
PROVIDERS: ATTEND Specialist
DX: M48.56XA Collapsed vertebra, not elsewhere classified, lumbar region, initial encounter for fracture (principal); M54.16 Radiculopathy, lumbar region; M43.26 Fusion of spine, lumbar region
CPT/HCPCS: 99212

== ENCOUNTER 2025-05-05 05:35 | Inpatient (IN) | payer MEDICARE, BC ==
[2025-05-03 08:57] VITALS: BMI 33.3
[~2025-05-05 05:35] MED LIST changes: -ACETAMINOPHEN TAB 500 MG TAB PO PRN; -GABAPENTIN 300 MG CAP PO PRN; -LACTATED RINGERS 1,000 ML IV SCH; +LIDOCAINE 1% (10MG/ML) FOR IV START INTRADERMA PRN; -VANCOMYCIN 1,500 MG in SODIUM CHLORIDE 0.9% 500 ML 500 ML IVPB PRN
[2025-05-05] MEDS: IV FLUID CONTINUATION 1,000 ML IV ONE ×3 (06:37)
[2025-05-05 07:00] LABS: Glucose,Whole Blood 116 mg/dL (70-110)
[2025-05-05] MEDS: ACETAMINOPHEN TAB 500 MG TAB PO PRN (07:10)
[2025-05-05] MEDS: GABAPENTIN 300 MG CAP PO PRN (07:10)
[2025-05-05] MEDS: MIDAZOLAM 2 MG/2 ML VIAL IV PRN (07:12)
[2025-05-05] MEDS: fentaNYL (PF) 50 MCG/ML 2 ML AMP IVP PRN (07:21)
[2025-05-05] MEDS: DEXAMETHASONE SOD PHOSPHATE 4 MG/ML 1 ML VIAL IV ONE (07:28)
[2025-05-05] MEDS: ONDANSETRON 4 MG/2 ML VIAL IVP ONE (07:29)
[2025-05-05] MEDS: LACTATED RINGERS 1,000 ML IV SCH (07:31)
[2025-05-05] MEDS ORDERED: ROCURONIUM 10 MG/ML (5 ML VIAL) IV ONE (07:59)
[2025-05-05] MEDS ORDERED: HYDROmorphone (PF) 1 MG/ML ONE (07:59)
[2025-05-05] MEDS ORDERED: PHENYLEPHRINE 10 MG/ML VIAL ONE (07:59)
[2025-05-05] MEDS ORDERED: PROPOFOL 10 MG/ML 20 ML VIAL IV ONE (07:59)
[2025-05-05] MEDS ORDERED: PHENYLEPHRINE-0.9% NACL SYG 1,000 MCG/10 ML SYRINGE ONE (07:59)
[2025-05-05] MEDS ORDERED: fentaNYL (PF) 50 MCG/ML 2 ML AMP ONE (07:59)
[2025-05-05] MEDS ORDERED: LIDOCAINE 1% INJ 10MG/ML (20 ML MDV) ONE (07:59)
[2025-05-05] MEDS ORDERED: SUCCINYLCHOLINE CHLORIDE 200 MG/10 ML VIAL IV ONE (07:59)
[2025-05-05] MEDS ORDERED: KETAMINE HCL IN 0.9 % NACL 50 MG/5 ML SYRINGE ONE (07:59)
[2025-05-05] MEDS ORDERED: NEOSTIGMINE 1 MG/ML 10 ML VIAL ONE (07:59)
[2025-05-05] MEDS ORDERED: GLYCOPYRROLATE 0.2 MG/ML 2 ML VIAL ONE (07:59)
[2025-05-05] MEDS ORDERED: TRANEXAMIC 1,000 MG/100ML-NACL PREMIX BAG ONE (07:59)
[2025-05-05] MEDS: ceFAZolin 2 GM in DEXTROSE 5% IN WATER 50 ML IVPB PRN (08:04)
[2025-05-05] MEDS: ceFAZolin 3,000 MG in SODIUM CHLORIDE 0.9% IRRIGATIO 3,000 ML IRRIGATION ONE (08:39)
[2025-05-05] MEDS: THROMBIN (BOVINE) 5,000 UNIT VIAL TOPICAL ONE (08:39)
[2025-05-05] MEDS: GENTAMICIN 80 MG in SODIUM CHLORIDE 0.9% IRRIGATIO 3,000 ML IRRIGATION ONE (08:39)
[2025-05-05] MEDS: LACTATED RINGERS 1,000 ML IV ONE (11:36)
[2025-05-05] MEDS: VANCOMYCIN 1,000 MG VIAL MISCELLANE ONE (11:37)
[2025-05-05] MEDS: SODIUM CHLORIDE 0.9% 100 ML with ceFAZolin 2,000 MG IV ONE (12:02)
--- NOTE | 2025-05-05 12:15 | P.HPOR ---
History of Present Illness H&P Date: 04/28/25 .D:Date: 04/28/25 : 10:21am .T:Title: PRE OP LUMBAR Clinical Summary Steve Pineda presents with severe back and leg pain, diagnosed with L3-S1 spondylosis with spondylolisthesis grade one and stenosis, lower extremity radiculopathy, and neurogenic claudication. Current pain management includes Renner and Gabapentin, with a reported pain level of 10 on the VAS scale. Steve has been attending physical therapy for sciatic nerve-related symptoms, which provided some relief but did not resolve the pain entirely. Due to the severity and progression of symptoms, an L3 to pelvis decompression fusion has been recommended. The surgical plan includes a 3-4 hour procedure with an expected 2- 3 day hospital stay. Post-operative care will involve home healthcare, in-home therapy, and transition to outpatient therapy at 6 weeks. A follow-up appointment is scheduled for 2 weeks post-surgery for staple or stitch removal. Steve has been instructed on post-operative restrictions, including a 10 lb lifting limit and proper use of a back brace. Chief Complaint Severe back pain radiating to the left thigh, with difficulty walking and constant sharp and achy sensations. SPINE SURGERY CLINICAL AND RISK REVIEW Steve Pineda is a patient presenting for evaluation of severe back pain radiating to the left thigh, with difficulty walking and constant sharp and achy sensations. It was my pleasure to have seen and examined Steve Pineda. In our visit today we have had a chance to go over subjective complaints, physical examination findings and treatments including the natural course history without intervention and various interventional options. The patient's imaging demonstrates the following findings: - L3-S1 spondylosis - Spondylolisthesis grade one - Spinal stenosis On a physical exam, Steve Pineda demonstrates the following findings: - Pain across the lumbar region - Left thigh pain - Difficulty walking due to pain - Neurogenic claudication symptoms I have explained to Steve that as their condition progresses it will cause further neurological deficits and eventual paralysis. Based on the imaging, physical exam, and the rapid progression and disabling nature of their symptoms, at this time I recommend surgery in the form of an L3 to pelvis decompression fusion. I discussed the risks and benefits of this procedure at length with Steve Pineda. Steve has agreed to consider pursuing the procedure above mentioned. 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 Questions were invited and answered, and Steve wishes to proceed as outlined below. Recommendations 1. Proceed with L3 to pelvis decompression fusion surgery. 2. Expected surgery duration: 3-4 hours. 3. Anticipated hospital stay: 2-3 days. 4. Post-operative care: - Home healthcare services for initial recovery period. - In-home therapy exercises. - Transition to outpatient therapy at 6 weeks post-surgery. 5. Follow-up appointment scheduled for 2 weeks post-surgery for staple or stitch removal. 6. Post-operative restrictions: - 10 lb lifting limit. - Use of back brace when up and moving around. - No brace required when lying in bed or sitting in a chair unless it provides comfort. 7. Gradual increase in mobility, starting with walking on the day of surgery. 8. Pain management with appropriate medications to facilitate therapy and mobilization. 9. Discontinue use of Pepto-Bismol at least 3 days prior to surgery. 10. Pre-surgical clearance from PCP and college basketball coach required. Risks Risks: All surgical procedures come with inherent risks, including those related to positioning, anesthesia, intraoperative findings, and postoperative complications. It is important to understand that surgery does not come with any guarantee of a successful outcome as complications and adverse events are always possible. The patient was given a handout in the office today discussing the surgical procedure and risks associated with the intervention, both of which were discussed with the patient. These risks include but are not limited to the following: - Experiencing same, different or even worse symptoms in back, neck, arms, or legs compared to before surgery. - Requiring further surgery or other forms of treatment presently or at some time in the future at same or other levels of the intended spine surgery. - On an extreme but fortunately relatively rare basis severe complications such as blindness, stroke, heart attack, temporary and/or permanent nerve injury, paralysis, coma, or may occur, sometimes without known explanation. - Surgical complications may include but are not limited to risk of infection, fluid accumulation in the surgical dissection site, including a seroma or hematoma, that requires additional surgery, wound drainage, bleeding, new numbness or weakness, vision changes/loss, spinal fluid leakage, non-healing and/or infected incision, headaches, difficulty or inability to swallow, hoarseness, hemopneumothorax, pneumothorax, impotence, retrograde ejaculation, vaginal dryness; injury to nerves, spinal cord, blood vessels, lymphatics or other vital organs (i.e., bowel injury, injury to the great vessels); heterotopic bone formation; complications related to the hardware such as screws, rods, cages including misplaced hardware, device failure, instrumentation at the wrong spine level, hardware fracture/breakage, or hardware loosening; vertebral failure of the spinal column above or below the newly placed hardware; retained surgical instrumentations or devices and the need for further surgery. - Medical risks of the planned spine surgery include but are not limited to generalized Infections to the whole body or local areas outside of the surgical site (sepsis), heart attack, bleeding, anaphylaxis, meningitis, seizure, epilepsy, hearing loss, burn otero, laceration of the head or other areas of the body, bruising, hypersensitivity of the skin, bladder over distension; allergic reaction; shoulder injury related to positioning; fat, blood and air clots to other areas of the body like heart, lungs, brain; failure of internal organs such as lungs, kidneys, liver and excessive bleeding. If blood transfusions are necessary, note that transfusions may cause intolerance reactions such as anaphylaxis or other complex reactions. - Despite best efforts, the results of spine surgery might not heal in terms of bone, soft tissues such as skin, fascia, ligaments, and joints. Additionally, in order to achieve best possible results, spine surgery may be carried out beyond the initially planned levels and involve decompression, fusion including insertion of hardware at levels other than the original intended area of surgical interest change some portions of the procedure in order to ensure the best possible outcomes. - With spine surgery and spinal fusion, there are different off label uses of instrumentation (devices, implants and hardware) as well as biological substances (bone morphogenic proteins, demineralized bone matrix) as well as using extra bone from allograft sources (i.e. cadaver bone) or autograft (iliac crest bone, ribs, or the spine itself). The patient has been given information about these practices and their inherent risks and benefits. Steve Pineda has had a chance to review all the listed information, has been given print outs detailing this information, and has had all questions answered to their satisfaction. It was my pleasure to have seen and examined Steve Pineda. In our visit today we have had a chance to go over my understanding of our patient's current condition, the natural course history without intervention and various interventional options. Questions were invited and answered, and Steve wishes to proceed as outlined above. I have seen and examined Steve for 25 minutes and we have spent more than 50% of the time in repeat and detailed counseling about the condition, its natural course history without and as much as can be predicted with surgery and re-review of various surgical treatment options. In conclusion, Steve Pineda and their family requested we proceed with the above suggested surgery and are willing to accept risks and limitations of the suggested surgery as the nature of the disease process and our best attempts at treatment for the condition. Attestation In our visit today Steve Pineda and I have had a chance to go over my understanding of their current condition, the natural course history without intervention and various interventional options. Questions were invited and answered, and Steve wishes to proceed as outlined above. I will be sure to keep you updated after Steve returns here for further follow- up. Thank you again for your referral. Please do not hesitate to contact me if you have any further questions. Signed and authenticated by: DO Rika Dorsey [facility] [address] [place] [address] This document is confidential, intended only for the named recipient(s) and may contain information that is privileged or exempt from disclosure under applicable law. If you are not the intended recipient(s), you are notified that the dissemination, distribution or copying of this information is strictly prohibited. If you received this message in error, please notify the sender then delete this message. # SIGNED BY Ariel Plaza (GOO)04/28/2025 12:05PM Past Medical History Past Medical History: Diabetes Mellitus, GERD/Reflux, Hyperlipidemia, Hypertension, Osteoarthritis (OA) Additional Past Medical History / Comment(s): Rescheduled for surgery from 08/20/24 due to scratch from a dog jumping on her on right lower leg that got infected, on antibiotics, to follow up with Dr Plaza 08/27/24. Thin skin. History of Any Multi-Drug Resistant Organisms: None Reported Date of last positivie culture/infection: 08/12/24 MDRO Source:: nasal Past Surgical History: Bladder Surgery, Cholecystectomy, Hysterectomy Additional Past Surgical History / Comment(s): Bladder suspension, colonoscopy. Past Anesthesia/Blood Transfusion Reactions: No Reported Reaction Past Psychological History: No Psychological Hx Reported Smoking Status: Never smoker Past Alcohol Use History: None Reported Past Drug Use History: None Reported - Past Family History Father Family Medical History: Cancer Medications and Allergies Home Medications Medication Instructions Recorded Confirmed Type Calcium Carbonate [Calcium] 600 mg PO DAILY 07/13/20 05/05/25 History Pravastatin Sodium [Pravachol] 40 mg PO QAM 07/13/20 05/05/25 History amLODIPine BESYLATE/BENAZEPRIL 1 tab PO QAM 07/13/20 05/05/25 History [amLODIPine BESYLATE/BENAZEPRIL 5-10 MG] Omeprazole 20 mg PO QAM 03/12/24 05/05/25 History Oxybutynin Chloride [oxyBUTYnin 15 mg PO QAM 03/12/24 05/05/25 History chloride ER] Alendronate Sodium [Fosamax] 70 mg PO FR 08/13/24 05/05/25 History Ascorbic Acid [Vitamin C] 250 mg PO DAILY 08/13/24 05/05/25 History Ferrous Sulfate [Iron] 325 mg PO DAILY 08/13/24 05/05/25 History Gabapentin [Neurontin] 100 mg PO TID 30 Days #90 cap 03/16/25 05/05/25 Rx HYDROcodone/APAP 7.5-325MG [Renner 1 tab PO TID PRN 30 Days #90 tab 03/16/25 05/05/25 Rx 7.5-325] Furosemide [Lasix] 20 mg PO DAILY 05/03/25 05/05/25 History metFORMIN HCL [Glucophage] 500 mg PO DAILY 05/03/25 05/05/25 History Allergies Allergy/AdvReac Type Severity Reaction Status Date / Time No Known Allergies Allergy Verified 05/05/25 06:43 Physical Examination Osteopathic Statement: *. No significant issues noted on an osteopathic structural exam other than those noted in the History and Physical/Consult. Results - Labs Labs: Abnormal Lab Results - Last 24 Hours (Table) 05/05/25 Range/Units 06:59 POC Glucose (mg/dL) 116 H (70-110) mg/dL
--- NOTE | 2025-05-05 12:26 | P.OP ---
Date of Procedure: 05/05/25 Preoperative Diagnosis: 1. L2-S1 SPONDYLOSIS, SEVERE WITH STENOSIS AND RADICULOPATHY 2. L3-4 GRADE I SPONDYLOLISTHESIS, UNSTABLE 3. L4-5 GRADE I SPONDYLOLISTHESIS, UNSTABLE 4. LUMBAR RADICULOPATHY L>R LE 5. LE WEAKNESS BILATERAL 6. LOW BACK PAIN Postoperative Diagnosis: 1. L2-S1 SPONDYLOSIS, SEVERE WITH STENOSIS AND RADICULOPATHY 2. L3-4 GRADE I SPONDYLOLISTHESIS, UNSTABLE 3. L4-5 GRADE I SPONDYLOLISTHESIS, UNSTABLE 4. LUMBAR RADICULOPATHY L>R LE 5. LE WEAKNESS BILATERAL 6. LOW BACK PAIN Procedure(s) Performed: 1. L5-S1 INTRADISCAL OSTEOTOMY, 3 COLUMN FOR DEFORMITY CORRECTION 2. L4-5 INTRADISCAL OSTEOTOMY, 3 COLUMN FOR DEFORMITY CORRECTION 3. L3-4 INTRADISCAL OSTEOTOMY, 3 COLUMN FOR DEFORMITY CORRECTION 4. L5-S1 POSTEROLATERAL AND INTERBODY FUSION 5. L4-5 POSTEROLATERAL AND INTERBODY FUSION 6. L3-4 POSTEROLATERAL AND INTERBODY FUSION 7. BILATERAL OPEN SACROILIAC JOINT FUSION FOR LONG CONSTRUCT STABILITY AND SACROILITIS 8. SEGMENTAL INSTRUMENTATION L3-PELVIS 9. ATTACHMENT OF THE CAUDAL END OF LONG SEGMENT TO THE BONY PELVIS NOT SACRUM 10. DURAL REPAIR WITH PATCH GRAFTING REQUIRING LAMINECTOMY 11. BILATERAL LAMINECTOMY, COMPLETE FACETECTOMY AND FORAMINOTOMY L3-4, L4-5, L5- S1 FOR DEFORMITY CORRECTION, COMPLETE NEURAL DECOMPRESSION AND CAGE PLACEMENT 12. INSERTION OF BIOMECHANICAL DEVICE, CAGES x3, L3-S1 13. USE OF [employer] NAVIGATION FOR PLACEMENT OF SCREWS USE OF IONM ALL SCREWS TESTING >20 mA MOD22: THIS CASE TOOK 75% LONGER THAN EXPECTED DUE TO PT COMORBID CONDITIONS, SEVERITY OF PATHOLOGY AND COMPLEXITY OF THE CASE. BMI >30. Implants: JOSE DAVID EVEREST RODS AND SCREWS SI BONE GRANTI PELVIC SCREWS SI BONE TORQUE SCREWS GLOBUS SABLE CAGES LONG, 12, 10, 10 MM 9-16 8 DEG MAGNATOS, CONTOUR, ARTHROCELL, ALLOCELL, AUTOGRAFT, DBM Anesthesia: GETA Surgeon: Ariel Plaza Heel Coverer #1: Vinay Gonzalez (was present and assisted with all aspects of the case from position to dressing placement) Estimated Blood Loss (ml): 400 IV fluids (ml): 2,000 Urine output (ml): 450 Pathology: none sent Condition: stable Disposition: PACU Indications for Procedure: Steve Pineda presents with severe back and leg pain, diagnosed with L3-S1 sp ondylosis with spondylolisthesis grade one and stenosis, lower extremity radiculopathy, and neurogenic claudication. Current pain management includes Avon and Gabapentin, with a reported pain level of 10 on the VAS scale. Steve has been attending physical therapy for sciatic nerve-related symptoms, which provided some relief but did not resolve the pain entirely. Due to the severity and progression of symptoms, an L3 to pelvis decompression fusion has been recommended. The surgical plan includes a 3-4 hour procedure with an expected 2- 3 day hospital stay. Post-operative care will involve home healthcare, in-home therapy, and transition to outpatient therapy at 6 weeks. A follow-up appointment is scheduled for 2 weeks post-surgery for staple or stitch removal. Steve has been instructed on post-operative restrictions, including a 10 lb lifting limit and proper use of a back brace. Surgical plan: L3-Pelvis decompression and fusion Description of Procedure: L3-PELVIS DECOMPRESSION AND FUSION (CAM) SI BONE GRANIT PELVIS SCREWS L2-S1 DECOMPRESSION The patient was seen and examined in the preoperative area. All preoperative protocols were followed. Informed consent was obtained, risks and benefits of the procedure were discussed at length. Risks including bleeding infection damage to the surrounding tissue and risk of reoperation were discussed with the patient. Risk of anesthesia up to and including was discussed with the patient. These are outlined in the risk review. They were willing to accept these risks and all the risks of surgery. The patient was given a weight-based dose of antibiotics in the form of 3 g Ancef. The patient was seen and evaluated by the anesthesia team who deemed them fit for surgery. The site was marked, the patient was willing to proceed with the procedure. The patient was transferred to the operative suite by the Department of anesthesia. They were then drifted off to sleep by the department anesthesia and GETA was performed. The patient tolerated this well. Melvin catheter was placed by nursing staff, a-traumatically. Once confirmation of lines and ventilation the patient was transferred to a prone Trios spine table very carefully. The head was secured and stable. X Ray confirmed alignment. All bony prominences including wrists, elbows, axilla, chest, hips, and thighs, and feet were padded very well. Special attention was paid to the genitalia, and these were padded accordingly. SCDs were placed on bilateral lower extremities and were connected. Arms were well padded and placed at 90/90 up and out and well padded. Safety strap and tape placed on the patient. Once in position, again we confirmed good ventilation capabilities and that lines were running appropriately. The patient's lumbosacral pelvic was then exposed. Hair was removed for incision. 1010s were placed outlining the incision site. Standard alcohol was used to clean the incision site and allowed to dry. C-arm was used to bio-juan francisco the patient and confirm level for incision which was marked with a skin marker. Operative briefing was performed with all teams and everyone in agreement to proceed. The patient was then prepped and draped in a normal sterile fashion. Timeout was then performed, and all parties agreed with the procedure to be performed. Midline skin incision was then made over the previously bookmarked area and dissection taken down to the lumbosacral fascia which was identified and cleaned with a mello. There was excessive sub-q adipose that was obtrusive and needed to be retracted. Once midline was identified, fasciotomy was made over the SP of L1-S1 and pelvis. Subperiosteal dissection was then taken down over the lamina and facet joints and TPs were exposed and trough made posterolateral. TPs were then decorticated with a high speed inessa for lateral fusion. Dissection was taken out over the sacrum to the pelvis. SI joint identified and modified García starting point for pelvic screws identified as well. Retractors placed. Wound was irrigated and lateral image with penfield 4 placed at the pars of L4 confirmed levels for operation. SP clamp was then placed for the [employer] navigation tracker and secured. The wound was then filled with NSS and Z-drape. A 3D Ziehm spin was then obtained and registered. Once confirmation of accuracy screws were then placed from L2-Pelvis using navigation. Navigated high speed inessa was used to make a military pilot hole followed by a navigated awl-tap passed through the pedicle into the body. A ball tip probe then confirmed within the pedicle. The screw was then measured and placed using a navigated screwdriver. After screws were placed from L2-S1, AP image confirmed safe placement of screws. Lateral images as well as navigation were then used to place bilateral SI bone Granit pelvic screws. Starting point selected just lateral to the SI joint and S2 pseudo facet. Lateral image taken and inessa used to make the military pilot hole. Gearshift then used to pass into the pelvis under lateral imaging just above the sciatic notch. 30 deg/30deg iliac oblique then taken to confirm within the teardrop and ball tip probe used to probe good bone. The screw was then measured and selected and placed under lateral imaging. This was repeated on the contralateral side. Screws were then visualized and appeared safe. Screws were then tested, and reliably tested screws tested above 20 mA. We then proceeded to decompression and interbody placement. Starting at L5-S1, bilateral laminectomy, complete facetectomy and foraminotomies were performed using high speed bur, Kerrison rongeur. There was exuberant bone formation throughout the entire lumbar spine, making the case very meticulous and difficult. Severe stenosis with dural scarring was noted at L3-S1. There was significant scar tissue surrounding these joints as well as the dura. Once exposed the neural elements were protected and an intradiscal ost eotomy, 3 column, was performed for deformity correction at L5-S1. Osteotome was used to make osteotomy in L5 and S1 and for complete disc removal. A box osteotome was then used to widen this bilaterally. This was passed into the anterior 1/3 of L5. This allowed for loosening of this level and correction. A cage was then selected based on shaving and trials. Bleeding endplates were encountered and cartilage removed. Autograft, allograft were then placed anterior to the cage. The cage was then impacted into place under lateral imaging while protecting neural elements. The cage was then expanded into position and showed good lift and correction. Restorationist of lordosis and height achieved. Meticulous hemostasis then performed. Cage was backfilled with DBM and the area irrigated. At L4-5, bilateral laminectomy, complete facetectomy and foraminotomy were performed as described above. Again, exuberant bone formation was encountered and at this level. There was also a large disc osteophyte complex that was identified once disc space was found. The dura was carefully dissected off this anteriorly and b/l. Once encountered, the disc space was then accessed in a similar fashion and neural elements protected. Intradiscal, 3 column osteotomies, for deformity correction were then performed again at this level as described above. Once completed and complete discectomy performed there was good mobility at this level. Cage was then sized and selected. Autograft and allograft was then placed anterior in the disc space and the cage was then inserted and impacted into place under lateral. AP image, as before, was taken to ensure midline placement. The cage was then expanded into position. This restored height, lordosis and alignment well. The cage was tested and was stable. The wound was irrigated. Meticulous hemostasis then performed. At L4-5 on decompression there was noted delamination of the dura just proximal to the L5 root take off as well as two small dural punctate lesions. These were identified and fixed with 6-0 prolene in simple fashion. A patch graft of fat was then harvested from the subq and secured to this area. Valsalva to 40 mmHg was done and there was no CSF leak. At L3-4, bilateral laminectomy, complete facetectomy and foraminotomy were performed as described above. Large disc osteophyte complex that was identified once disc space was found. The dura was carefully dissected off this anteriorly and b/l. Once encountered, the disc space was then accessed in a similar fashion and neural elements protected. Intradiscal, 3 column osteotomies, for deformity correction were then performed again at this level as described above. Once completed and complete discectomy performed there was good mobility at this level. Cage was then sized and selected. Autograft and allograft was then placed anterior in the disc space and the cage was then inserted and impacted into place under lateral. AP image, as before, was taken to ensure midline placement. The cage was then expanded into position. This restored height, lordosis and alignment well. The cage was tested and was stable. The wound was irrigated. Meticulous hemostasis then performed. At L2-3, bilateral laminectomy, partial medial facetectomy and foraminotomy were performed with facet cyst removal. The wound was irrigated, and meticulous hemostasis performed. Attention was then drawn to benjy placement. Rods were selected, measured, cut and bent to appropriate lordosis. They were then secured into pelvic screws b/l. Sequential reduction then done into each screw and set screw placed. Set screws were then final tightened and lateral image showed good lordosis reduction and sagittal alignment. The wound was then irrigated with 3L Ancef irrigation, 3L gentamicin irrigation, 3L Irricept through the case and 1L Betadine at the end of the case and 3L NSS. Surgicel was then placed on the dura, which was inspected and had no injury. Then, in the posterolateral gutter was placed, MagnatOs, Autograft and allograft. This was impacted into position and surgical placed over it. 2g Vanco powder was then placed deep in the wound. A deep, subfascial drain was placed and a superficial facial drain placed. We then proceeded with layered closure. #1 PDS placed in the deep fascia. 0 Vicryl placed in the deep subq, 2-0 placed in the superficial subq and grzegorz placed in the skin. The wound edges approximated very well. The wound was then cleaned with ETOH and dressed with adaptic, 4x4, ABD and tape. Drains sewed into position. IONM confirmed no changes. The patient was then transferred off the [facility] spine table to their hospital bed a-traumatically. Drains continued to hold suction. The patient was then extubated and transferred to the PACU/ICU in stable condition having tolerated the procedure with no complications.
[2025-05-05] MEDS ORDERED: HYDROcodone/APAP 5-325MG 1 EACH TAB PO PRN (12:32)
[2025-05-05] MEDS ORDERED: ONDANSETRON 4 MG/2 ML VIAL IVP PRN (12:35)
[2025-05-05] MEDS ORDERED: SENNOSIDES-DOCUSATE SODIUM 1 EACH TAB PO PRN (12:35)
[2025-05-05] MEDS ORDERED: CYCLOBENZAPRINE 5 MG TAB PO PRN (12:35)
[2025-05-05] MEDS ORDERED: MAGNESIUM HYDROXIDE 2,400 MG/30 ML CUP PO PRN (12:35)
[2025-05-05] MEDS ORDERED: HYDROmorphone 0.5 MG/0.5 ML SYRINGE IVP PRN (12:35)
[2025-05-05] MEDS ORDERED: oxyCODONE-APAP 7.5-325MG 1 EACH TAB PO PRN (12:42)
[2025-05-05] MEDS: HYDROmorphone 0.5 MG/0.5 ML SYRINGE IVP PRN (12:43)
--- NOTE | 2025-05-05 14:58 | XR ---
Fluoroscopy INDICATION: Pain FINDINGS: Fluoroscopy time: 34 +54 seconds. Total dose area product (DAP) in uGy*m?, mGy*cm? (or similar): 919.21 + 26.1989 Images obtained: 14. Images document the Lumbosacral fixation with disc spacers. IMPRESSION: 1. Documentation of fluoroscopy. [facility], , 05/05/2025 2:56 PM
--- NOTE | 2025-05-05 15:32 | FL ---
Fluoroscopy INDICATION: Pain FINDINGS: Fluoroscopy time: 34+54 seconds. Total dose area product (DAP) in uGy*m?, mGy*cm? (or similar): 919.21 +26.1990 Images obtained: 0. Images document the procedure. IMPRESSION: 1. Documentation of fluoroscopy. [facility], , 05/05/2025 3:30 PM
[2025-05-05] MEDS: GABAPENTIN 300 MG CAP PO SCH (15:33)
[2025-05-05] MEDS: ceFAZolin 2 GM in DEXTROSE 5% IN WATER 50 ML IVPB SCH (16:30)
[2025-05-05] MEDS: HYDROcodone/APAP 10-325MG 1 EACH TAB PO PRN (16:36)
[2025-05-05] MEDS: ACETAMINOPHEN TAB 325 MG TAB PO SCH (17:37)
--- NOTE | 2025-05-05 17:51 | CT ---
EXAMINATION TYPE: CT lumbar spine wo con DATE OF EXAM: 05/05/2025 5:35 PM COMPARISON: CT lumbar spine May 28, 2024 CLINICAL INDICATION: Female, 74 years old with history of s/p L3-pelvis decompr fusion; [facility], post L3- pelvis decompression fusion TECHNIQUE: Unenhanced CT of the lumbar spine was performed. Bone and soft tissue window settings are submitted as well as coronal and sagittal reconstructions. CT DLP: 1613.6 mGycm Automated exposure control for dose reduction was used. FINDINGS: There are 5 lumbar type vertebra redemonstrated. Persistent slight levoconvex scoliotic curvature wilmer tered at L2-L3 level. Interval surgery with placement of bilateral posterior transpedicular rods and screws running from L3 through the pelvis into the bilateral iliac bones to the sacroiliac joints. Me tallic disc cage material L3-L4 through the L5/S1 levels is now seen. There is additional fixating sc rews through the bilateral sacroiliac joints. Posterior decompression changes with laminectomy defect s and spinous process resection the lower lumbar spine spine is seen. Ill-defined fluid and air in th e posterior subcutaneous and deeper tissue is noted. There is right-sided percutaneous drainage helene ter terminating in the right posterior upper sacral region. Hardware position appears grossly satisfactory on axial images. The right S1 screw shows minimally tr ansverses the anterior margin of the upper sacrum. No suspicious new findings within the abdomen or p mirna. A few colonic diverticula are incidentally noted. Cholecystectomy clips are redemonstrated. IMPRESSION: Long segment surgical changes now present. No convincing evidence for significant hardwa re malpositioning or acute complication related to recent surgery. [facility], , 05/05/2025 5:49 PM
--- NOTE | 2025-05-05 19:46 | P.ANPRN ---
Procedure Note - Anesthesia - Invasive Line Left Arterial Line Time Out Performed: Yes Date of Procedure: 05/05/25 Time of Procedure: 07:21 Location of Patient: PreOp Preparation: Sterile Prep, Sterile Dressing Arterial Line Location: Briachial Ultrasound Used: No Purpose - Visualization and Identification of Vasculature: No Image Stored and Saved: No Narrative: Invasive line placement per sterile protocol utilized.
[2025-05-05] MEDS: HYDROmorphone 1 MG/ML 1 ML SYRINGE IVP PRN (22:06)
[2025-05-06 08:20] LABS: HGB 10.9 g/dL (12.0-15.0); MCH 29.4 pg (27.0-32.0); MCHC 32.1 g/dL (32.0-37.0); MCV 91.6 FL (80.0-97.0); Mean Platelet Volume 10.9 FL (9.5-12.2); NRBC Per 100 WBC 0 X 10*3/uL (0.00-0.01); Platelet Count 218 X 10*3/uL (140-440); RBC 3.71 X 10*6/uL (4.10-5.20); RDW 13.9 % (11.5-14.5); WBC 15.94 X 10*3/uL (4.50-10.00)
[2025-05-06 09:21] LABS: Basophils # (A) 0.02 X 10*3/uL (0.00-0.10); Basophils % (A) 0.1 %; Eosinophils # (A) 0 X 10*3/uL (0.04-0.35); Eosinophils % (A) 0 %; Lymphocytes % (A) 12.5 %; Monocytes # (A) 1.54 X 10*3/uL (0.20-1.00); Monocytes % (A) 9.7 %; Neutrophils % (A) 77.2 %
[2025-05-06 10:24] LABS: BUN/Creat Ratio 16.12 Ratio (12.00-20.00); Blood Urea Nitrogen 12.9 mg/dL (9.0-27.0); Calcium 8.8 mg/dL (8.7-10.3); Carbon Dioxide 23.9 mmol/L (21.6-31.8); Chloride 106 mmol/L (96-109); Glucose 120 mg/dL (70-110); Potassium 4.4 mmol/L (3.5-5.5); Sodium 140 mmol/L (135-145)
[2025-05-06] MEDS ORDERED: NON FORMULARY DRUG (Alendronate Sodium [Fosamax] 70 MG Tablet) PO SCH (10:30)
[2025-05-06] MEDS: lisinopriL 10 MG TAB PO SCH (11:01)
[2025-05-06] MEDS: amLODIPine 5 MG TAB PO SCH (11:01)
--- NOTE | 2025-05-06 11:19 | P.PN ---
Subjective Progress Note Date: 05/06/25 Principal diagnosis: 1. L2-S1 SPONDYLOSIS, SEVERE WITH STENOSIS AND RADICULOPATHY 2. L3-4 GRADE I SPONDYLOLISTHESIS, UNSTABLE 3. L4-5 GRADE I SPONDYLOLISTHESIS, UNSTABLE 4. LUMBAR RADICULOPATHY L>R LE 5. LE WEAKNESS BILATERAL 6. LOW BACK PAIN Patient was seen at bedside this morning lying in the semirecumbent position with dressing in place over the lumbar spine and Melvin in place. Patient says she did have a minor headache last night for which she did take Tylenol and that helped with it. Patient says since then she has not had any headaches. Patient says she has not set up fully or stood but is looking forward to working with therapy later this morning. Patient says the pain she is having in her back is controlled with oral medication. Patient denies any other issues at this time. Objective - Vital Signs Vital signs: Vital Signs Temp 98 F 05/06/25 07:07 Pulse 94 05/06/25 07:07 Resp 16 05/06/25 07:07 BP 137/69 05/06/25 07:07 Pulse Ox 97 05/06/25 07:07 FiO2 Intake & Output 05/05/25 05/06/25 05/06/25 18:59 06:59 18:59 Intake Total 2502 Output Total 1400 1800 Balance 1102 -1800 Weight 95.4 kg Intake: IV 2502 Output: Drainage 150 Back 150 Urine 1000 1650 Estimated Blood Loss 400 Other: Voiding Method Indwelling Catheter - Exam Incision appears to be clean, dry, intact over lumbar spine. Dressing in place. Drain in place to gravity at this time. Sensation is somewhat altered along left lower extremity diffusely. Equal, symmetric, intact in the upper extremities on exam. There is some generalized tenderness to patient over the lumbar spine near incision on exam. Nontender on rest of exam. Patient does have limited range of motion in bilateral hips on exam secondary referred pain and stiffness in the low back. 4-/5 in all major motor groups in bilateral lower extremities. Negative clonus bilaterally. Negative Homans bilaterally. Negative young bilaterally. - Labs CBC & Chem 7: 05/06/25 06:04 05/06/25 06:04 Labs: Abnormal Lab Results - Last 24 Hours (Table) 05/06/25 Range/Units 06:04 WBC 15.94 H (4.50-10.00) X 10*3/uL RBC 3.71 L (4.10-5.20) X 10*6/uL Hgb 10.9 L (12.0-15.0) g/dL Hct 34.0 L (37.2-46.3) % Immature Gran # 0.08 H (0.00-0.04) X 10*3/uL Neutrophils # 12.30 H (1.80-7.70) X 10*3/uL Monocytes # 1.54 H (0.20-1.00) X 10*3/uL Eosinophils # 0 L (0.04-0.35) X 10*3/uL Assessment and Plan Assessment: 1. L2-S1 SPONDYLOSIS, SEVERE WITH STENOSIS AND RADICULOPATHY 2. L3-4 GRADE I SPONDYLOLISTHESIS, UNSTABLE 3. L4-5 GRADE I SPONDYLOLISTHESIS, UNSTABLE 4. LUMBAR RADICULOPATHY L>R LE 5. LE WEAKNESS BILATERAL 6. LOW BACK PAIN - Postop day 1 status post L3 to pelvis decompression and fusion Plan: 1. L2-S1 SPONDYLOSIS, SEVERE WITH STENOSIS AND RADICULOPATHY; L3-4 GRADE I SPONDYLOLISTHESIS, UNSTABLE; L4-5 GRADE I SPONDYLOLISTHESIS, UNSTABLE; LUMBAR RADICULOPATHY L>R LE; LE WEAKNESS BILATERAL; LOW BACK PAIN -surgery performed yesterday, , 05/05/2025L3 to pelvis decompression and fusion. Patient stable at bedside this morning on 4 S. Dressing clean, dry, intact over lumbar spine. Pain medication as needed. Maintain Melvin for now with possible removal tomorrow. Work with PT/OT daily. Maintain drain to gravity at this time. Assess dressing daily. Change dressing as needed. weightbearing as tolerated wi walker and assistance as needed. We will continue to follow-up patient during stay in hospital. Discharge pending. 2. Appreciate medical management 3 pain management -Holmes; Flexeril; gabapentin 4. DVT prophylaxis -mechanical 5. GI prophylaxis-senna; milk of mag; Tums; Protonix 6. PT/OT -weightbearing as tolerated with walker and assistance 7. Encourage incentive spirometer use 8. Discharge planning -pending Time with Patient: Less than 30
--- NOTE | 2025-05-06 12:17 | P.CONS ---
History of Present Illness - Reason for Consult Consult date: 05/06/25 Medical management - History of Present Illness History of present illness; patient 74-year-old lady with past medical history significant for back pain who presented the hospital for elective L3 to pelvis decompression fusion surgery. Patient has been dealing with back pain for the last few months, patient has tried pain management including [place] and gabapentin without much relief, physical therapy has also not provided much relief. Decision was made to proceed with surgery. Patient underwent L3 to pelvis decompression fusion surgery on 05/05. Postoperatively internal medicine team were consulted for medical management REVIEW OF SYSTEMS: CONSTITUTIONAL: No fever, no malaise, no fatigue. HEENT: No recent visual problems or hearing problems. Denied any sore throat. CARDIOVASCULAR: No chest pain, orthopnea, PND, no palpitations, no syncope. PULMONARY: No shortness of breath, no cough, no hemoptysis. GASTROINTESTINAL: No diarrhea, no nausea, no vomiting, no abdominal pain. NEUROLOGICAL: No headaches, no weakness, no numbness. HEMATOLOGICAL: Denies any bleeding or petechiae. GENITOURINARY: Denies any burning micturition, frequency, or urgency. MUSCULOSKELETAL/RHEUMATOLOGICAL: Back pain ENDOCRINE: Denies any polyuria or polydipsia. The rest of the 14-point review of systems is negative. PHYSICAL EXAMINATION: GENERAL: The patient is alert and oriented x3, not in any acute distress. Well developed, well nourished. HEENT: Pupils are round and equally reacting to light. EOMI. No scleral icterus. No conjunctival pallor. Normocephalic, atraumatic. No pharyngeal erythema. No thyromegaly. CARDIOVASCULAR: S1 and S2 present. No murmurs, rubs, or gallops. PULMONARY: Chest is clear to auscultation, no wheezing or crackles. ABDOMEN: Soft, nontender, nondistended, normoactive bowel sounds. No palpable organomegaly. MUSCULOSKELETAL: No joint swelling or deformity. EXTREMITIES: No cyanosis, clubbing, or pedal edema. NEUROLOGICAL: Gross neurological examination did not reveal any focal deficits. SKIN: Lumbar area surgical incision seen, drain in place Assessment and plan L3-S1 spondylosis with spondylolisthesis grade one and stenosis lower extremity radiculopathy, and neurogenic claudication History of hypertension History of diabetes mellitus Monitor vital signs Monitor CBC Status post L3-PELVIS DECOMPRESSION AND FUSION (CAM) SI BONE GRANIT PELVIS SCREWS L2-S1 DECOMPRESSION Continue pain management per orthopedics Continue DVT prophylaxis per orthopedics Aggressive bowel regimen to prevent opioid-induced constipation Resume home meds PT and OT consulted Labs and medication were reviewed.. Continue same treatment. Continue with symptomatic treatment. Resume home medication. Monitor labs and vitals. DVT and GI prophylaxis. Further recommendations as per clinical course of the patient Dictation was produced using [employer] dictation software. please excuse any grammatical, word or spelling errors. Past Medical History Past Medical History: Diabetes Mellitus, GERD/Reflux, Hyperlipidemia, Hypert ension, Osteoarthritis (OA) Additional Past Medical History / Comment(s): Rescheduled for surgery from 08/20/24 due to scratch from a dog jumping on her on right lower leg that got infected, on antibiotics, to follow up with Dr Plaza 08/27/24. Thin skin. History of Any Multi-Drug Resistant Organisms: None Reported Year Discovered:: 08/12/24 MDRO Source:: nasal Past Surgical History: Back Surgery, Bladder Surgery, Cholecystectomy, Hysterectomy Additional Past Surgical History / Comment(s): Bladder suspension, colonoscopy. L3-pelvis decompression and fusion Past Anesthesia/Blood Transfusion Reactions: No Reported Reaction Past Psychological History: No Psychological Hx Reported Smoking Status: Never smoker Past Alcohol Use History: None Reported Past Drug Use History: None Reported - Past Family History Father Family Medical History: Cancer Medications and Allergies Home Medications Medication Instructions Recorded Confirmed Type Calcium Carbonate [Calcium] 600 mg PO DAILY 07/13/20 05/05/25 History Pravastatin Sodium [Pravachol] 40 mg PO QAM 07/13/20 05/05/25 History amLODIPine BESYLATE/BENAZEPRIL 1 tab PO QAM 07/13/20 05/05/25 History [amLODIPine BESYLATE/BENAZEPRIL 5-10 MG] Omeprazole 20 mg PO QAM 03/12/24 05/05/25 History Oxybutynin Chloride [oxyBUTYnin 15 mg PO QAM 03/12/24 05/05/25 History chloride ER] Alendronate Sodium [Fosamax] 70 mg PO FR 08/13/24 05/05/25 History Ascorbic Acid [Vitamin C] 250 mg PO DAILY 08/13/24 05/05/25 History Ferrous Sulfate [Iron] 325 mg PO DAILY 08/13/24 05/05/25 History Gabapentin [Neurontin] 100 mg PO TID 30 Days #90 cap 03/16/25 05/05/25 Rx HYDROcodone/APAP 7.5-325MG [[place] 1 tab PO TID PRN 30 Days #90 tab 03/16/25 06/0 04/24 Rx 7.5-325] Furosemide [Lasix] 20 mg PO DAILY 05/03/25 05/05/25 History metFORMIN HCL [Glucophage] 500 mg PO DAILY 05/03/25 05/05/25 History Allergies Allergy/AdvReac Type Severity Reaction Status Date / Time No Known Allergies Allergy Verified 05/05/25 06:43 Physical Exam Vitals: Vital Signs Temp Pulse Resp BP BP Pulse Ox 05/06/25 07:07 98 F 94 16 137/69 97 05/06/25 01:11 97.8 F 84 17 121/71 93 L 05/05/25 23:47 94 L 05/05/25 19:09 98.0 F 91 17 130/73 90 L 05/05/25 17:07 97.6 F 105 H 17 116/68 97 05/05/25 15:27 97 05/05/25 14:44 79 16 152/78 97 05/05/25 14:14 78 16 153/70 97 05/05/25 13:59 90 16 159/73 98 05/05/25 13:44 91 18 167/80 99 05/05/25 13:29 81 16 164/83 98 05/05/25 13:14 79 18 159/76 97 05/05/25 12:59 86 18 154/81 95 05/05/25 12:44 87 16 160/78 99 05/05/25 12:29 89 16 160/76 98 Intake and Output 05/05/25 05/06/25 05/06/25 22:59 06:59 14:59 Output Total 650 1800 Balance -650 -1800 Output: Drainage 150 Back 150 Urine 650 1650 Other: Voiding Method Indwelling Catheter Results CBC & Chem 7: 05/06/25 06:04 05/06/25 06:04 Labs: Abnormal Lab Results - Last 24 Hours (Table) 05/06/25 Range/Units 06:04 WBC 15.94 H (4.50-10.00) X 10*3/uL RBC 3.71 L (4.10-5.20) X 10*6/uL Hgb 10.9 L (12.0-15.0) g/dL Hct 34.0 L (37.2-46.3) % Immature Gran # 0.08 H (0.00-0.04) X 10*3/uL Neutrophils # 12.30 H (1.80-7.70) X 10*3/uL Monocytes # 1.54 H (0.20-1.00) X 10*3/uL Eosinophils # 0 L (0.04-0.35) X 10*3/uL
[2025-05-07] MEDS: PANTOPRAZOLE 40 MG TABLET PO SCH (06:38)
[2025-05-07] MEDS: ASCORBIC ACID 500 MG TAB PO SCH (08:07)
[2025-05-07] MEDS: PRAVASTATIN SODIUM 40 MG TAB PO SCH (08:07)
[2025-05-07] MEDS: metFORMIN 500 MG TAB PO SCH (08:08)
[2025-05-07] MEDS: OXYBUTYNIN 15 MG TAB.ER.24 PO SCH (08:08)
[2025-05-07] MEDS: CALCIUM CARBONATE 500 MG CHEWABLE PO SCH (08:08)
[2025-05-07] MEDS: FERROUS SULFATE 325 MG TAB PO SCH (08:08)
[2025-05-07] MEDS: FUROSEMIDE 20 MG TAB PO SCH (08:17)
--- NOTE | 2025-05-07 11:55 | P.PN ---
Subjective Progress Note Date: 05/07/25 Principal diagnosis: Status post [id number] decompression and fusion Patient was evaluated today at bedside, she was resting in her hospital bed the bed elevated to about 60 degrees at the head, her was also present. Patient denies any headaches, headedness, double vision, chest pain, shortness of breath, nausea or vomiting. Patient's drain continues to put out a decent amount, the urinary catheter remains in place. Patient did have some increase in pain last night which required IV pain medication. Objective - Vital Signs Vital signs: Vital Signs Temp 98.1 F 05/07/25 07:17 Pulse 97 05/07/25 07:17 Resp 18 05/07/25 07:17 BP 114/67 05/07/25 07:17 Pulse Ox 92 L 05/07/25 07:17 FiO2 Intake & Output 05/06/25 05/07/25 05/07/25 18:59 06:59 18:59 Intake Total 240 Output Total 3000 1600 Balance -3000 -1600 240 Intake: Oral 240 Output: Urine 3000 1600 Other: Voiding Method Indwelling Catheter Indwelling Catheter - Exam Gen: AOx3, NAD VSS stable at this time Integument: Postop dressing is in good position and condition Palpation: Palpation throughout the lumbar spine ROM: Range of motion in all major muscle groups of the bilateral lower and upper extremity Sensory Exam: Senory exam to light touch is intact C5-T1 Senosry exam to light touch is intact L2-S1 Motor: 5/5 strength in the bilateral upper extremities with shoulder elevation, shoulder abduction, elbow extension, elbow flexion, wrist extension, wrist flexion, senior qa automation engineer 4/5 strength appreciated bilateral lower extremities with hip flexion, knee extension, knee flexion, plantarflexion, dorsiflexion, EHL, FHL Reflexes: 2/4 in all UE and LE Negative Camille's bilaterally negative clonus bilaterally - Labs CBC & Chem 7: 05/06/25 06:04 05/06/25 06:04 Assessment and Plan Assessment: Postoperative day #2 status post [id number] decompression and fusion Plan: Pain control, continue with current medications DVT prophylaxis, aspirin 81 mg daily to start today Discussed with nursing about the patient she can sit up to about 90 degrees and attempt putting her feet on the ground. If patient remains asymptomatic she may get up to the chair and take some small steps with the use of the walker and lumbar brace Monitor urinary output, hopeful discontinuation of urinary catheter in 05/08/2025 Monitor surgical drain output, hopeful discontinuation in the next 24-48 hours PT/OT Medical recommendations appreciated We will continue to follow patient during hospital stay Time with Patient: Less than 30
--- NOTE | 2025-05-07 18:01 | P.PN ---
Subjective Progress Note Date: 05/07/25 74-year-old lady with past medical history significant for back pain who presented the hospital for elective L3 to pelvis decompression fusion surgery. Patient has been dealing with back pain for the last few months, patient has tried pain management including [place] and gabapentin without much relief, ph ysical therapy has also not provided much relief. Decision was made to proceed with surgery. Patient underwent L3 to pelvis decompression fusion surgery on 05/05. Postoperatively internal medicine team were consulted for medical management Objective - Vital Signs Vital signs: Vital Signs Temp 98.1 F 05/07/25 07:17 Pulse 97 05/07/25 07:17 Resp 18 05/07/25 07:17 BP 114/67 05/07/25 07:17 Pulse Ox 92 L 05/07/25 07:17 FiO2 Intake & Output 05/06/25 05/07/25 05/07/25 18:59 06:59 18:59 Intake Total 240 Output Total 3000 1600 Balance -3000 -1600 240 Intake: Oral 240 Output: Urine 3000 1600 Other: Voiding Method Indwelling Catheter Indwelling Catheter - Exam GENERAL: The patient is alert and oriented x3, not in any acute distress. Well developed, well nourished. HEENT: Pupils are round and equally reacting to light. EOMI. No scleral icterus. No conjunctival pallor. Normocephalic, atraumatic. No pharyngeal erythema. No thyromegaly. CARDIOVASCULAR: S1 and S2 present. No murmurs, rubs, or gallops. PULMONARY: Chest is clear to auscultation, no wheezing or crackles. ABDOMEN: Soft, nontender, nondistended, normoactive bowel sounds. No palpable organomegaly. MUSCULOSKELETAL: No joint swelling or deformity. EXTREMITIES: No cyanosis, clubbing, or pedal edema. NEUROLOGICAL: Gross neurological examination did not reveal any focal deficits. SKIN: Lumbar area surgical incision seen, drain in place - Labs CBC & Chem 7: 05/06/25 06:04 05/06/25 06:04 Assessment and Plan Assessment: L3-S1 spondylosis with spondylolisthesis grade one and stenosis lower extremity radiculopathy, and neurogenic claudication History of hypertension History of diabetes mellitus Monitor vital signs Monitor CBC Status post L3-PELVIS DECOMPRESSION AND FUSION (CAM) SI BONE GRANIT PELVIS SCREWS L2-S1 DECOMPRESSION Continue pain management per orthopedics Continue DVT prophylaxis per orthopedics Aggressive bowel regimen to prevent opioid-induced constipation Resume home meds PT and OT consulted Labs and medication were reviewed.. Continue same treatment. Continue with symptomatic treatment. Resume home medication. Monitor labs and vitals. DVT and GI prophylaxis. Further recommendations as per clinical course of the patient
[2025-05-08 07:21] LABS: Basophils # (A) 0.03 10*3/uL (0.00-0.10); Basophils % (A) 0.2 %; Eosinophils # (A) 0.06 10*3/uL (0.04-0.35); Eosinophils % (A) 0.4 %; HCT 30.4 % (37.2-46.3); HGB 9.9 g/dL (12.0-15.0); Lymphocytes # (A) 1.84 10*3/uL (0.90-5.00); Lymphocytes % (A) 12.2 %; MCH 29.6 pg (27.0-32.0); MCHC 32.6 g/dL (32.0-37.0); Mean Platelet Volume 10.1 fL (9.5-12.2); Monocytes # (A) 1.62 10*3/uL (0.20-1.00); Monocytes % (A) 10.8 %; Neutrophils % (A) 75.8 %; Platelet Count 177 10*3/uL (140-440); RBC 3.34 10*6/uL (4.10-5.20); RDW 13.9 % (11.5-14.5); WBC 15.04 10*3/uL (4.50-10.00)
[2025-05-08 07:34] LABS: African American GFR (CKD) 85 (>60 ml/min/1.73 sqM); Anion Gap 4 mmol/L; Blood Urea Nitrogen 13 mg/dL (7-17); Calcium 8.6 mg/dL (8.4-10.2); Carbon Dioxide 27 mmol/L (22-30); Chloride 102 mmol/L (98-107); Glucose 118 mg/dL (74-99); Non-African American GFR(CKD) 74 (>60 ml/min/1.73 sqM); Potassium 4.1 mmol/L (3.5-5.1); Sodium 133 mmol/L (137-145)
--- NOTE | 2025-05-08 11:48 | P.PN ---
Subjective Progress Note Date: 05/08/25 Principal diagnosis: Status post [id number] decompression and fusion Patient was evaluated today at bedside, her was also present. Patient has been able to sit up at the side of the bed and was also able to get to the chair with no headaches double vision or lightheadedness. Urinary catheter had remained in place, the surgical dressing and drain was also in good place. Patient states that the pain is tolerable at this time. She denies headaches, lightheadedness, chest pain, shortness of breath, nausea or vomiting. Objective - Vital Signs Vital signs: Vital Signs Temp 98.6 F 05/08/25 07:08 Pulse 80 05/08/25 07:08 Resp 17 05/08/25 07:08 BP 136/73 05/08/25 07:08 Pulse Ox 95 05/08/25 07:08 FiO2 Intake & Output 05/07/25 05/08/25 05/08/25 18:59 06:59 18:59 Intake Total 1320 180 Output Total 650 750 Balance 670 -750 180 Intake: Oral 1320 180 Output: Urine 650 750 Other: Voiding Method Indwelling Catheter - Exam Gen: AOx3, NAD VSS stable at this time Integument: Postop dressing and drain removed today at bedside. She has multiple blisters noted on the back, there are Optifoam dressings in place. A new Optifoam dressing was placed, grzegorz were all in good position and condition Palpation: Mild tenderness with palpation of the paraspinal region in the lower lumbar spine ROM: Range of motion in all major muscle groups of the bilateral lower and upper extremity Sensory Exam: Senory exam to light touch is intact C5-T1 Senosry exam to light touch is intact L2-S1 Motor: 5/5 strength in the bilateral upper extremities with shoulder elevation, shoulder abduction, elbow extension, elbow flexion, wrist extension, wrist flexion, assistant center manager 4/5 strength appreciated bilateral lower extremities with hip flexion, knee extension, knee flexion, plantarflexion, dorsiflexion, EHL, FHL Reflexes: 2/4 in all UE and LE Negative Camille's bilaterally negative clonus bilaterally - Labs CBC & Chem 7: 05/08/25 06:53 05/08/25 06:53 Labs: Abnormal Lab Results - Last 24 Hours (Table) 05/08/25 05/08/25 Range/Units 06:53 06:53 WBC 15.04 H (4.50-10.00) 10*3/uL RBC 3.34 L (4.10-5.20) 10*6/uL Hgb 9.9 L (12.0-15.0) g/dL Hct 30.4 L (37.2-46.3) % Immature Gran # 0.09 H (0.00-0.04) 10*3/uL Neutrophils # 11.40 H (1.80-7.70) 10*3/uL Monocytes # 1.62 H (0.20-1.00) 10*3/uL Sodium 133 L (137-145) mmol/L Glucose 118 H (74-99) mg/dL Assessment and Plan Assessment: Postoperative day #3 status post [id number] decompression and fusion Plan: Pain control, continue with current medications DVT prophylaxis, aspirin 81 mg daily to start today Weight-bear as tolerated with walker, brace for longer distances Monitor surgical dressing Remove Melvin catheter later today PT/OT Medical recommendations appreciated We will continue to follow patient during hospital stay Time with Patient: Less than 30
[2025-05-08] MEDS: polyethylene glycoL 3350 17 GM POWD.PACK PO SCH (12:10)
[2025-05-08] MEDS: SENNOSIDES-DOCUSATE SODIUM 1 EACH TAB PO SCH (12:10)
--- NOTE | 2025-05-08 16:48 | P.PN ---
Subjective Progress Note Date: 05/08/25 74-year-old lady with past medical history significant for back pain who presented the hospital for elective L3 to pelvis decompression fusion surgery. Patient has been dealing with back pain for the last few months, patient has tried pain management including [place] and gabapentin without much relief, ph ysical therapy has also not provided much relief. Decision was made to proceed with surgery. Patient underwent L3 to pelvis decompression fusion surgery on 05/05. Postoperatively internal medicine team were consulted for medical management 05/08/2025 Patient is seen and evaluated in room at bedside; is present in the room; patient reports fair pain control Vital signs are reviewed stable with temperature of 98.6, pulse 80, respirations 17 and blood pressure of 136/73 with O2 saturation of 95% Labs are reviewed and white blood count remains elevated at 15.04 from 15.9 yesterday; patient has no complaint of cough or shortness of breath; denies any urinary complaint -We will order procalcitonin and CRP; hold off on antibiotics at this time - Patient is status post L3 to pelvis decompression and fusion, POD #3; orthopedic surgery recommending DVT prophylaxis with aspirin 81 mg daily; patient is weightbearing as tolerated - Await PT/OT recommendation for discharge disposition Objective - Vital Signs Vital signs: Vital Signs Temp 98.6 F 05/08/25 07:08 Pulse 80 05/08/25 07:08 Resp 17 05/08/25 07:08 BP 136/73 05/08/25 07:08 Pulse Ox 92 L 05/08/25 11:47 FiO2 Intake & Output 05/07/25 05/08/25 05/08/25 18:59 06:59 18:59 Intake Total 1320 180 Output Total 650 750 Balance 670 -750 180 Intake: Oral 1320 180 Output: Urine 650 750 Other: Voiding Method Indwelling Catheter - Exam GENERAL: The patient is alert and oriented x3, not in any acute distress. Well developed, well nourished. HEENT: Pupils are round and equally reacting to light. EOMI. No scleral icterus. No conjunctival pallor. Normocephalic, atraumatic. No pharyngeal erythema. No thyromegaly. CARDIOVASCULAR: S1 and S2 present. No murmurs, rubs, or gallops. PULMONARY: Chest is clear to auscultation, no wheezing or crackles. ABDOMEN: Soft, nontender, nondistended, normoactive bowel sounds. No palpable organomegaly. MUSCULOSKELETAL: No joint swelling or deformity. EXTREMITIES: No cyanosis, clubbing, or pedal edema. NEUROLOGICAL: Gross neurological examination did not reveal any focal deficits. SKIN: Lumbar area surgical incision seen, drain in place - Labs CBC & Chem 7: 05/08/25 06:53 05/08/25 06:53 Labs: Abnormal Lab Results - Last 24 Hours (Table) 05/08/25 05/08/25 Range/Units 06:53 06:53 WBC 15.04 H (4.50-10.00) 10*3/uL RBC 3.34 L (4.10-5.20) 10*6/uL Hgb 9.9 L (12.0-15.0) g/dL Hct 30.4 L (37.2-46.3) % Immature Gran # 0.09 H (0.00-0.04) 10*3/uL Neutrophils # 11.40 H (1.80-7.70) 10*3/uL Monocytes # 1.62 H (0.20-1.00) 10*3/uL Sodium 133 L (137-145) mmol/L Glucose 118 H (74-99) mg/dL Assessment and Plan Assessment: L3-S1 spondylosis with spondylolisthesis grade one and stenosis lower extremity radiculopathy, and neurogenic claudication History of hypertension History of diabetes mellitus Monitor vital signs Monitor CBC Status post L3-PELVIS DECOMPRESSION AND FUSION (CAM) SI BONE GRANIT PELVIS SCREWS L2-S1 DECOMPRESSION Continue pain management per orthopedics Continue DVT prophylaxis per orthopedics Aggressive bowel regimen to prevent opioid-induced constipation Resume home meds PT and OT consulted Labs and medication were reviewed.. Continue same treatment. Continue with symptomatic treatment. Resume home medication. Monitor labs and vitals. DVT and GI prophylaxis. Further recommendations as per clinical course of the patient
[2025-05-08] MEDS: ASPIRIN 81 MG PO SCH (17:54)
[2025-05-09 08:00] LABS: HCT 31.2 % (37.2-46.3); HGB 9.8 g/dL (12.0-15.0); MCH 29.3 pg (27.0-32.0); MCHC 31.4 g/dL (32.0-37.0); MCV 93.1 FL (80.0-97.0); Mean Platelet Volume 11.2 FL (9.5-12.2); NRBC Per 100 WBC 0 X 10*3/uL (0.00-0.01); Platelet Count 202 X 10*3/uL (140-440); RBC 3.35 X 10*6/uL (4.10-5.20); RDW 13.6 % (11.5-14.5); WBC 13.21 X 10*3/uL (4.50-10.00)
[2025-05-09 08:01] LABS: Basophils # (A) 0.03 X 10*3/uL (0.00-0.10); Basophils % (A) 0.2 %; Eosinophils # (A) 0.15 X 10*3/uL (0.04-0.35); Eosinophils % (A) 1.1 %; Lymphocytes # (A) 1.72 X 10*3/uL (0.90-5.00); Monocytes # (A) 1.55 X 10*3/uL (0.20-1.00); Monocytes % (A) 11.7 %; Neutrophils # (A) 9.69 X 10*3/uL (1.80-7.70); Neutrophils % (A) 73.5 %
[2025-05-09 08:18] LABS: BUN/Creat Ratio 20.22 Ratio (12.00-20.00); Blood Urea Nitrogen 18.2 mg/dL (9.0-27.0); Calcium 8.7 mg/dL (8.7-10.3); Carbon Dioxide 25.2 mmol/L (21.6-31.8); Chloride 98 mmol/L (96-109); Glucose 123 mg/dL (70-110); Potassium 4.3 mmol/L (3.5-5.5); Sodium 132 mmol/L (135-145)
--- NOTE | 2025-05-09 09:52 | P.PN ---
Subjective Progress Note Date: 05/09/25 Principal diagnosis: Status post [id number] decompression and fusion Patient was evaluated today at bedside, she is sitting up in her hospital chair. Patient is doing a lot better with regards to her gait, physical therapy was able to get her up today. She denies any changes in visions. Pain is well- controlled. She denies headaches, lightheadedness, chest pain, shortness of breath, nausea or vomiting. Objective - Vital Signs Vital signs: Vital Signs Temp 98.8 F 05/09/25 07:38 Pulse 101 H 05/09/25 07:38 Resp 18 05/09/25 07:38 BP 113/70 05/09/25 07:38 Pulse Ox 94 L 05/09/25 07:38 FiO2 Intake & Output 05/08/25 05/09/25 05/09/25 18:59 06:59 18:59 Intake Total 2094 Output Total 600 Balance 1494 Intake: Oral 2093 Output: Urine 600 Other: Voiding Method Bedside Commode # Voids 3 - Exam Gen: AOx3, NAD VSS stable at this time Integument: Optifoam dressing is in good position condition Palpation: Mild tenderness with palpation of the paraspinal region in the lower lumbar spine ROM: Range of motion in all major muscle groups of the bilateral lower and upper extremity Sensory Exam: Senory exam to light touch is intact C5-T1 Senosry exam to light touch is intact L2-S1 Motor: 5/5 strength in the bilateral upper extremities with shoulder elevation, shoulder abduction, elbow extension, elbow flexion, wrist extension, wrist flexion, nib inspector 4/5 strength appreciated bilateral lower extremities with hip flexion, knee extension, knee flexion, plantarflexion, dorsiflexion, EHL, FHL Reflexes: 2/4 in all UE and LE Negative Camille's bilaterally negative clonus bilaterally - Labs CBC & Chem 7: 05/09/25 03:39 05/09/25 03:39 Labs: Abnormal Lab Results - Last 24 Hours (Table) 05/09/25 05/09/25 Range/Units 03:39 03:39 WBC 13.21 H (4.50-10.00) X 10*3/uL RBC 3.35 L (4.10-5.20) X 10*6/uL Hgb 9.8 L (12.0-15.0) g/dL Hct 31.2 L (37.2-46.3) % MCHC 31.4 L (32.0-37.0) g/dL Immature Gran # 0.07 H (0.00-0.04) X 10*3/uL Neutrophils # 9.69 H (1.80-7.70) X 10*3/uL Monocytes # 1.55 H (0.20-1.00) X 10*3/uL Sodium 132 L (135-145) mmol/L BUN/Creatinine Ratio 20.22 H (12.00-20.00) Ratio Glucose 123 H (70-110) mg/dL C-Reactive Protein 21.30 H (0.00-0.80) mg/dL Assessment and Plan Assessment: Postoperative day #4 status post [id number] decompression and fusion Plan: Pain control, continue with current medications DVT prophylaxis, aspirin 81 mg daily to start today Weight-bear as tolerated with walker, brace for longer distances Monitor surgical dressing Remove Melvin catheter later today PT/OT Medical recommendations appreciated Discharge planning: Patient has continued to progress well, plan for discharge home on 05/10/2025 with home health care Time with Patient: Less than 30
--- NOTE | 2025-05-09 12:34 | XR ---
EXAMINATION TYPE: XR chest 1V portable DATE OF EXAM: 05/09/2025 12:28 PM COMPARISON: None TECHNIQUE: XR chest 1V portable Portable AP radiograph of the chest. CLINICAL INDICATION:Female, 74 years old with history of atelectasis; FINDINGS: Lungs/Pleura: There is no evidence of pleural effusion, focal consolidation, or pneumothorax. Pulmonary vascularity: Unremarkable. Heart/mediastinum: Cardiomediastinal silhouette is unremarkable. Musculoskeletal: No acute osseous pathology. IMPRESSION: No acute cardiopulmonary disease/process. [facility], , 05/09/2025 12:31 PM
[2025-05-09] MEDS ORDERED: LACTULOSE 20 GM/30 ML CUP PO PRN (12:58)
--- NOTE | 2025-05-09 13:33 | PN ---
PROGRESS NOTE DATE OF SERVICE: 05/09/2025 SUBJECTIVE: This is a 74-year-old woman who was admitted after lumbar surgery is improving significantly. White count is slightly elevated. No chest pain. No palpitation. PHYSICAL EXAMINATION: VITAL SIGNS: Pulse 101, blood pressure 130/70, respirations 18. CHEST: Clear to auscultation. CARDIOVASCULAR: S1 and S2. ABDOMEN: Soft. BACK: Status post surgery. LABORATORY DATA: WBC 13.21. ASSESSMENT: 1. Status post L3 decompression fusion. 2. Elevated WBC possibly reactive. 3. Hypertension. 4. Diabetes mellitus, type 2. RECOMMENDATION: Recommend to continue current management and continue symptomatic treatment. Otherwise recommend repeat labs, incentive spirometry. Blood sugars are controlled. Afebrile except a spike on 05/08. portable cxr to exclude atelectasis. Further recommendations to follow. MMODL / IJN: [id number] / MTDD
[2025-05-09 14:08] LABS: Appearance,Urine Clear (Clear); Bilirubin,Urine Negative (Negative); Blood,Urine Negative (Negative); Color,Urine Yellow; Glucose,Urine (UA) Negative (Negative); Ketones,Urine Negative (Negative); Leukocyte Esterase,Urine Negative (Negative); Nitrite,Urine Negative (Negative); Protein,Urine Negative (Negative); Specific Gravity,Urine 1.009 (1.001-1.035); Urobilinogen,Urine <2.0 mg/dL (<2.0)
[2025-05-10 07:42] VITALS: BP 112/64; PULSE 89; RESP 18; TEMP 97.9
[2025-05-10 08:14] LABS: Basophils # (A) 0.02 X 10*3/uL (0.00-0.10); Basophils % (A) 0.2 %; Eosinophils # (A) 0.18 X 10*3/uL (0.04-0.35); Eosinophils % (A) 1.8 %; HCT 28.4 % (37.2-46.3); HGB 9.2 g/dL (12.0-15.0); Lymphocytes # (A) 1.23 X 10*3/uL (0.90-5.00); Lymphocytes % (A) 12.5 %; MCH 29.9 pg (27.0-32.0); MCHC 32.4 g/dL (32.0-37.0); MCV 92.2 FL (80.0-97.0); Mean Platelet Volume 10.5 FL (9.5-12.2); Monocytes # (A) 1.18 X 10*3/uL (0.20-1.00); NRBC Per 100 WBC 0 X 10*3/uL (0.00-0.01); Neutrophils # (A) 7.16 X 10*3/uL (1.80-7.70); Neutrophils % (A) 72.9 %; Platelet Count 243 X 10*3/uL (140-440); RBC 3.08 X 10*6/uL (4.10-5.20); WBC 9.83 X 10*3/uL (4.50-10.00)
[2025-05-10 08:45] LABS: Blood Urea Nitrogen 17.2 mg/dL (9.0-27.0); Calcium 8.8 mg/dL (8.7-10.3); Chloride 99 mmol/L (96-109); Glucose 119 mg/dL (70-110); Potassium 4.5 mmol/L (3.5-5.5); Sodium 132 mmol/L (135-145)
--- NOTE | 2025-05-10 10:17 | P.PN ---
Subjective Progress Note Date: 05/10/25 Principal diagnosis: Status post [id number] decompression and fusion Patient was evaluated today at bedside, she is sitting up in her hospital chair. Patient did have a minor incident with walking with the nursing staff yesterday, she felt that the left foot got stuck and bent in a weird position, they had to lower her to the ground. She has had no increase in back pain at th is time. She denies any changes in visions. Pain is well-controlled. She denies headaches, lightheadedness, chest pain, shortness of breath, nausea or vomiting. Objective - Vital Signs Vital signs: Vital Signs Temp 97.9 F 05/10/25 07:41 Pulse 89 05/10/25 07:41 Resp 18 05/10/25 07:41 BP 112/64 05/10/25 07:41 Pulse Ox 95 05/10/25 07:41 FiO2 Intake & Output 05/09/25 05/10/25 05/10/25 18:59 06:59 18:59 Intake Total 1120 450 Balance 1120 450 Intake: Oral 1120 450 Other: Voiding Method Bedside Commode # Voids 2 4 1 - Exam Gen: AOx3, NAD VSS stable at this time Integument: Optifoam dressing is in good position condition Palpation: Mild tenderness with palpation of the paraspinal region in the lower lumbar spine ROM: Range of motion in all major muscle groups of the bilateral lower and upper extremity Sensory Exam: Senory exam to light touch is intact C5-T1 Senosry exam to light touch is intact L2-S1 Motor: 5/5 strength in the bilateral upper extremities with shoulder elevation, shoulder abduction, elbow extension, elbow flexion, wrist extension, wrist flexion, carbonizer 4/5 strength appreciated bilateral lower extremities with hip flexion, knee extension, knee flexion, plantarflexion, dorsiflexion, EHL, FHL Reflexes: 2/4 in all UE and LE Negative Camille's bilaterally negative clonus bilaterally - Labs CBC & Chem 7: 05/10/25 03:32 05/10/25 03:32 Labs: Abnormal Lab Results - Last 24 Hours (Table) 05/10/25 05/10/25 Range/Units 03:32 03:32 RBC 3.08 L (4.10-5.20) X 10*6/uL Hgb 9.2 L (12.0-15.0) g/dL Hct 28.4 L (37.2-46.3) % Immature Gran # 0.06 H (0.00-0.04) X 10*3/uL Monocytes # 1.18 H (0.20-1.00) X 10*3/uL Sodium 132 L (135-145) mmol/L BUN/Creatinine Ratio 21.50 H (12.00-20.00) Ratio Glucose 119 H (70-110) mg/dL Assessment and Plan Assessment: Postoperative day #5 status post [id number] decompression and fusion Plan: Pain control, planning to discharge with oral medication DVT prophylaxis, continue aspirin while in hospital Weight-bear as tolerated with walker, brace for longer distances Monitor surgical dressing, discussed with nursing they will change today PT/OT Medical recommendations appreciated Discharge planning: after long discussion with the patient and nursing and case management we are recommending subacute rehab, I explained to the patient I feel this would be the safest for her. She will then be transition to home with home health care anticipated the next 7 to 14 days. Time with Patient: Less than 30
--- NOTE | 2025-05-10 10:25 | P.DS ---
Providers Date of admission: 05/05/25 05:35 Expected date of discharge: 05/10/25 Attending physician: Ariel Plaza DO Consults: 05/05/25 12:35 Consult Physician Routine Consulting Provider: James Lay Consult Reason/Comments: medical management s//p s/p L3-pelvis decompr fusion Do you want consulting provider notified?: Yes Primary care physician: Angelina Martin Hospital Course: Date of admission: 05/05/2025 Date of discharge: 05/10/2025 Admission diagnosis: Status post [id number] posterior lateral decompression and fusion Discharge diagnosis: Same Attending physician: Dr. Plaza Surgical procedures: [id number] posterior lateral decompression and fusion Brief history: Patient is a 74-year-old female with a history of progressive low back pain, bilateral lower extremity radiculopathy and weakness, significant stenosis and spondylosis throughout the lumbar spine. At this point patient has failed conservative treatment measures and has opted to proceed with a elective [id number] decompression and fusion. Hospital course: Details of patient's surgery can be found in operative report. Patient tolerated the procedure well and was subsequently transported to orthopedic floor. Patient's orthopeidc and medical care was provided daily. Patient had daily laboratory tests performed for evaluation of overall blood counts. Patient had daily physical therapy to include strengthening range of motion as well as education with walker ambulation. Patient was treated with aspirin, JACQUELINE hose and compression stocking for their postoperative DVT prophylaxis during their inpatient stay. Patient was noted to have a relatively uneventful postoperative course. Patient reported satisfactory pain control with oral pain medications by postoperative day 2. Patient showed satisfactory progress with physical therapy. Patient moved steadily through the program and had no difficulty meeting the goals by postoperative day 5. Given patient's otherwise satisfactory course and having met physical therapy goals, plan is to discharge patient subacute rehab on postoperative day 5. Discharge condition/disposition: Patient will be discharged subacute rehab in stable condition. Discharge medications: Instructions are given on resumption of patient's normal daily medications per primary care recommendation, in addition patient will be prescribed Caldwell 10 mg / 325 mg, gabapentin 300 mg, . Senna S, MiraLAX 17 g, ferrous sulfate 325 mg, Spine Discharge and Recovery Instructions Medications: See medication list All medication refills should be obtained through your primary care doctor or your clinic spine surgeon. Please discuss prescription refills at your follow up appointment. Do not call the hospital for medication refills. Dressing: Leave your dressing in place for a total of 5 days post operatively. Then you may remove your dressing and leave open to air. Keep the area clean and if not able to keep area clean, then cover with sterile gauze and tape. Showering: You may shower 3 days after your procedure allowing soap and water to run over incision. Do not scrub. Do not soak. Blot dry. Follow up: Please confirm a follow up appointment with your surgeon 3 weeks post operatively. Please make an appointment to follow up with your PCP in 1-2 weeks after surgery for evaluation '3 phase, 3-week plan' POST OP WEEKS 1-3 1. Lifting/carrying/pushing/pulling limited to less than 5 pounds. 2. Do not sit for longer than 15 minutes at one time. Get up and walk around. Prolonged sitting is NOT advised. If you lay down, see if you can tolerate laying down on you front (belly side) 3. Walk for periods of 15 minutes = 1 mile but no longer; do it multiple times times each day. 4. Ice your low back after activity. POST OP WEEKS 3-6 1. Lifting limited to less than 20 pounds. 2. Do not sit for longer than 30 minutes at a time. Frequently change positions. Use a sit-to stand workstation or take frequent breaks from sitting if you have returned to work. 3. Walk for 30 minutes each day. If possible, do these three or more times a day POST OP WEEKS 6+ At your 6-week appointment we will give you a physical therapy referral to focus on a core stabilization and strengthening program. You should also work on leg & buttock strengthening, hamstring & quadriceps stretching, and continue a low impact aerobic activity program such as swimming, walking, or riding a stationary bicycle. During the initial 6 weeks after your surgery, you are at the highest risk of re-injuring your spine. You should generally avoid BLT's (bending, lifting and twisting combination motions) and follow the above guidelines to reduce the chance of reinjury. You can anticipate post op appointments in our office at approximately 3 weeks and 6 weeks after your surgery. INCISION CARE: If your incision is not draining you do NOT need to cover it with a dressing. Keep your incision clean, dry and intact. In most cases, we apply skin glue, grzegorz or sutures to the incision at the time of surgery. This will be like a crust or have the appearance of a scab and will fall off in time on its own. The stitches or grzegorz need to be removed at 3 weeks post op appointment. You may begin to shower 3 days after surgery (this allows the glue to gilliland well). However, please avoid scrubbing the incision site or peeling off any of the skin glue. This will ensure optimal healing of your incision. Also, during this time avoid soaking the incision area in water - this includes swimming pools, hot tubs or baths. No ointments, lotions or oils on the incision until your surgeon allows. Leave grzegorz, sutures or glue in place. Neurological dysfunction that comes on suddenly can also be a sign of a stroke. Below some common symptoms of a stroke are listed: B - balance difficulty such as sudden onset walking or leaning to one side - NEW E - eye problem such as sudden double vision or trouble seeing on one side - NEW F - Facial weakness or numbness on one side - NEW A - Arm or leg weakness or numbness on one side - NEW S - Slurred speech or difficulty with word finding - NEW T - Time is BRAIN! Call 911 as soon as you recognize these symptoms Diet: Consume a regular diet rich in vegetables and lean protein such as chicken or fish. You should consume in a ratio of approximately 20% fats|40% carbohydrates|40%protein. Vegetables, sweet potatoes, brown rice or quinoa are examples of good carbohydrates. Chips, white bread, cookies and sweets/sugar are examples of bad carbohydrates. Limit your bad carbs, go wild with good carbs. "Life's Simple 7" Guidelines as per [employer] [employer] These will help you reclaim your life after surgery and slitter creaser slotter helper in your recovery, keeping in mind your restrictions. (1) Get Active. Physical activity can help people lose weight, control high blood pressure and cholesterol, feel emotionally better, and sleep better. (2) Control Cholesterol. Avoid a diet high in saturated fat, trans fat, & cholesterol. Limit whole milk & cream, ice cream, butter, egg yolks, processed meats (like sausage and hot dogs), and fatty meats. Choose healthy foods that are low in saturated fat, trans fat and cholesterol which include: Fruits and vegetables, fiber rich grain products (like whole grain pasta and brown rice), lean meat such as chicken, fish, nuts, seeds, and legumes. (3) Eat Better. Eat small portions. Shop at the grocery with a list and do not stray from it. Tips for a healthy diet include: Limit sodium intake to less than 1500mg daily, avoid prepackaged, processed, and fast foods, choose a diet rich in fruits, vegetables, and whole grain, high fiber foods, and limit saturated & cholesterol in your diet. (4) Manage Blood Pressure. If you have high blood pressure, you should have a cuff at home so that you can check your blood pressure regularly. Be sure you have a good cuff. An arm one is generally better than a wrist one. Bring the cuff to a doctor's appointment to validate that the measurements that your cuff are taking are accurate. Take your blood pressure twice daily when you are sitting down and relaxing. Record the numbers in a log and bring this log with you to your doctors' appointments. (5) Lose Weight if your BMI is above 25. A healthy BMI is between 19-25. To calculate Your BMI, you may use a Standard BMI Calculator on the NIH BMI website: <www.nhlbi.nih.gov/guidelines/obesity/BMI/bmicalc.htm>. Weigh oneself daily. If you are overweight, set a goal to lose weight. A pound a week loss if needed is a good target. (6) Reduce Blood Sugar. Limit foods and liquids with "added sugars." (Added sugars include sucrose, fructose, glucose, maltose, dextrose, high fructose corn syrup, corn syrup, concentrated fruit juice and honey). (7) Stop Smoking. If you smoke, quitting smoking is one of the best things that you can do for your health. Smoking increases your risk of heart attack, stroke, and peripheral vascular disease, which is a build-up of plaque in your arteries. Please discard all the cigarettes and lighters in your house. Have a plan for what you will do when you have the urge to smoke. Direct and second- hand smoke shortens your life as well as the lives of your family, friends and others around you. For your health and the health of those around you, please consider quitting! Proper Bending Body Mechanics: Maintain a wide stance with one foot slightly in front of the other. Keep your back straight. Bend utilizing the strength in your hips and knees. Do not bend at the waist. Maintain the lifted object at your waist-level close to your body. Avoid lifting weight that causes immediately pain or pain anywhere in the body afterwards. Smoking/Nicotine If there was ever one thing that you could do to increase your overall health, decrease your risk of cardiovascular problems by about 39% the second you make the choice, it is to STOP SMOKING. Your body's most instant gratification is the second you stop smoking. We have all heard the studies, read the articles but it is true, smoking is extremely bad for your overall health, and moreover it is detrimental to your bone health. Nicotine, IN ANY FORM, kills bone cells, prevents your body from healing fractures, and significantly prolongs healing after surgery. In spine surgery specifically, it increases your risk of not healing your bones to create a fusion and increases your risk of having a revision surgery due to this up to 6 0%. I know it is hard. I know it feels impossible. But there are ways. Take control of your life. We are here to help you through it. And when you are ready, ask us and we can direct you to help if you desire. Use the START Plan to Quit Smoking (please visit the [employer] website listed below for more information): S = Set a quit date. Choose a date within the next 2 weeks, so you have enough time to prepare without losing your motivation to quit. If you mainly smoke at work, quit on the weekend, so you have a few days to adjust to the change. T = Tell family, friends, and co-workers that you plan to quit. Let your friends and family in on your plan to quit smoking and tell them you need their support and encouragement to stop. Look for a quit lisa who wants to stop smoking as well. You can help each other get through the rough times. A = Anticipate and plan for the challenges you'll face while quitting. Most people who begin smoking again do so within the first 3 months. You can help yourself make it through by preparing ahead for common challenges, such as nicotine withdrawal and cigarette cravings. R = Remove cigarettes and other tobacco products from your home, car, and work. Throw away all your cigarettes (no emergency pack!), lighters, ashtrays, and matches. Wash your clothes and freshen up anything that smells like smoke. Shampoo your car, clean your drapes and carpet, and steam your furniture. T = Talk to your doctor about getting help to quit. Your doctor can prescribe medication to help with withdrawal and suggest other alternatives. If you can't see a doctor, you can get many products over the counter at your local pharmacy or grocery store, including the nicotine patch, nicotine lozenges, and nicotine gum. Resources for Quitting Smoking: <https://www.[place].gov/documents/[facility]/Quit_Tobacco_Resources_for_patients_313 480_7.pdf> Supplementation: Take recommended dosages of Vitamin D and Calcium to help fortify your bones and help them to heal. See your health maintenance packet for dosages and recommended levels. DVT/VTE prophylaxis: You will be given compression stockings from the hospital. Wear these daily for the first two weeks after surgery. You may take them off at night. You may be prescribed a medication to help thin your blood. Take this as directed. If you are not prescribed this medication, early and frequent ambulation has been shown to be the best prophylaxis to deep vein thrombosis and sequelae related to this event. Procedures: [id number] posterior lateral decompression and fusion Patient Condition at Discharge: Good Plan - Discharge Summary Discharge Rx Participant: No New Discharge Prescriptions: New Ferrous Sulfate [Iron (65 MG Elemental)] 325 mg PO DAILY #30 tab Sennosides/Docusate Sodium [Senna-S 8.6-50 mg Tablet] 2 each PO DAILY PRN #30 tablet PRN Reason: Constipation cefaDROXiL [Duricef] 500 mg PO Q12HR 5 Days #10 cap Gabapentin 300 mg PO TID #30 cap polyethylene glycoL 3350 [Miralax] 17 gm PO DAILY PRN #21 packet PRN Reason: Constipation HYDROcodone/APAP 10-325MG [Caldwell 10-325] 1 tab PO Q6HR PRN 7 Days #28 tab PRN Reason: Pain No Action amLODIPine BESYLATE/BENAZEPRIL [amLODIPine BESYLATE/BENAZEPRIL 5-10 MG] 1 tab PO QAM Pravastatin Sodium [Pravachol] 40 mg PO QAM Calcium Carbonate [Calcium] 600 mg PO DAILY Omeprazole 20 mg PO QAM Ferrous Sulfate [Iron] 325 mg PO DAILY metFORMIN HCL [Glucophage] 500 mg PO DAILY Furosemide [Lasix] 20 mg PO DAILY Oxybutynin Chloride [oxyBUTYnin chloride ER] 15 mg PO QAM Alendronate Sodium [Fosamax] 70 mg PO FR Ascorbic Acid [Vitamin C] 250 mg PO DAILY HYDROcodone/APAP 7.5-325MG [Caldwell 7.5-325] 1 tab PO TID PRN 30 Days #90 tab PRN Reason: Pain Gabapentin [Neurontin] 100 mg PO TID 30 Days #90 cap Discharge Medication List Calcium Carbonate [Calcium] 600 mg PO DAILY 07/13/20 [History] Pravastatin Sodium [Pravachol] 40 mg PO QAM 07/13/20 [History] amLODIPine BESYLATE/BENAZEPRIL [amLODIPine BESYLATE/BENAZEPRIL 5-10 MG] 1 tab PO QAM 07/13/20 [History] Omeprazole 20 mg PO QAM 03/12/24 [History] Oxybutynin Chloride [oxyBUTYnin chloride ER] 15 mg PO QAM 03/12/24 [History] Alendronate Sodium [Fosamax] 70 mg PO FR 08/13/24 [History] Ascorbic Acid [Vitamin C] 250 mg PO DAILY 08/13/24 [History] Ferrous Sulfate [Iron] 325 mg PO DAILY 08/13/24 [History] Gabapentin [Neurontin] 100 mg PO TID 30 Days #90 cap 03/16/25 [Rx] HYDROcodone/APAP 7.5-325MG [Caldwell 7.5-325] 1 tab PO TID PRN 30 Days #90 tab 03/16/25 [Rx] Furosemide [Lasix] 20 mg PO DAILY 05/03/25 [History] metFORMIN HCL [Glucophage] 500 mg PO DAILY 05/03/25 [History] Ferrous Sulfate [Iron (65 MG Elemental)] 325 mg PO DAILY #30 tab 05/10/25 [Rx] Gabapentin 300 mg PO TID #30 cap 05/10/25 [Rx] HYDROcodone/APAP 10-325MG [Caldwell 10-325] 1 tab PO Q6HR PRN 7 Days #28 tab 05/10/25 [Rx] Sennosides/Docusate Sodium [Senna-S 8.6-50 mg Tablet] 2 each PO DAILY PRN #30 tablet 05/10/25 [Rx] cefaDROXiL [Duricef] 500 mg PO Q12HR 5 Days #10 cap 05/10/25 [Rx] polyethylene glycoL 3350 [Miralax] 17 gm PO DAILY PRN #21 packet 05/10/25 [Rx] Follow up Appointment(s)/Referral(s): [facility], [NON-STAFF] - As Needed ([facility] will call you to schedule your in home nursing, physical therapy, and occupational therapy visits. ) Ariel Plaza DO [Doctor of Osteopathic Medicine] - 10 Days Activity/Diet/Wound Care/Special Instructions: Spine Discharge and Recovery Instructions Medications: See medication list All medication refills should be obtained through your primary care doctor or your clinic spine surgeon. Please discuss prescription refills at your follow up appointment. Do not call the hospital for medication refills. Dressing: Leave your dressing in place for a total of 5 days post operatively. Then you may remove your dressing and leave open to air. Keep the area clean and if not able to keep area clean, then cover with sterile gauze and tape. Showering: You may shower 3 days after your procedure allowing soap and water to run over incision. Do not scrub. Do not soak. Blot dry. Follow up: Please confirm a follow up appointment with your surgeon 3 weeks post operatively. Please make an appointment to follow up with your PCP in 1-2 weeks after surgery for evaluation '3 phase, 3-week plan' POST OP WEEKS 1-3 1. Lifting/carrying/pushing/pulling limited to less than 5 pounds. 2. Do not sit for longer than 15 minutes at one time. Get up and walk around. Prolonged sitting is NOT advised. If you lay down, see if you can tolerate laying down on you front (belly side) 3. Walk for periods of 15 minutes = 1 mile but no longer; do it multiple times times each day. 4. Ice your low back after activity. POST OP WEEKS 3-6 1. Lifting limited to less than 20 pounds. 2. Do not sit for longer than 30 minutes at a time. Frequently change positions. Use a sit-to stand workstation or take frequent breaks from sitting if you have returned to work. 3. Walk for 30 minutes each day. If possible, do these three or more times a day POST OP WEEKS 6+ At your 6-week appointment we will give you a physical therapy referral to focus on a core stabilization and strengthening program. You should also work on leg & buttock strengthening, hamstring & quadriceps stretching, and continue a low impact aerobic activity program such as swimming, walking, or riding a stationary bicycle. During the initial 6 weeks after your surgery, you are at the highest risk of re-injuring your spine. You should generally avoid BLT's (bending, lifting and twisting combination motions) and follow the above guidelines to reduce the chance of reinjury. You can anticipate post op appointments in our office at approximately 3 weeks and 6 weeks after your surgery. INCISION CARE: If your incision is not draining you do NOT need to cover it with a dressing. Keep your incision clean, dry and intact. In most cases, we apply skin glue, grzegorz or sutures to the incision at the time of surgery. This will be like a crust or have the appearance of a scab and will fall off in time on its own. The stitches or grzegorz need to be removed at 3 weeks post op appointment. You may begin to shower 3 days after surgery (this allows the glue to gilliland well). However, please avoid scrubbing the incision site or peeling off any of the skin glue. This will ensure optimal healing of your incision. Also, during this time avoid soaking the incision area in water - this includes swimming pools, hot tubs or baths. No ointments, lotions or oils on the incision until your surgeon allows. Leave grzegorz, sutures or glue in place. Neurological dysfunction that comes on suddenly can also be a sign of a stroke. Below some common symptoms of a stroke are listed: B - balance difficulty such as sudden onset walking or leaning to one side - NEW E - eye problem such as sudden double vision or trouble seeing on one side - NEW F - Facial weakness or numbness on one side - NEW A - Arm or leg weakness or numbness on one side - NEW S - Slurred speech or difficulty with word finding - NEW T - Time is BRAIN! Call 911 as soon as you recognize these symptoms Diet: Consume a regular diet rich in vegetables and lean protein such as chicken or fish. You should consume in a ratio of approximately 20% fats|40% carbohydrates|40%protein. Vegetables, sweet potatoes, brown rice or quinoa are examples of good carbohydrates. Chips, white bread, cookies and sweets/sugar are examples of bad carbohydrates. Limit your bad carbs, go wild with good carbs. "Life's Simple 7" Guidelines as per [employer] [employer] These will help you reclaim your life after surgery and slitter creaser slotter helper in your recovery, keeping in mind your restrictions. (1) Get Active. Physical activity can help people lose weight, control high blood pressure and cholesterol, feel emotionally better, and sleep better. (2) Control Cholesterol. Avoid a diet high in saturated fat, trans fat, & cholesterol. Limit whole milk & cream, ice cream, butter, egg yolks, processed meats (like sausage and hot dogs), and fatty meats. Choose healthy foods that are low in saturated fat, trans fat and cholesterol which include: Fruits and vegetables, fiber rich grain products (like whole grain pasta and brown rice), lean meat such as chicken, fish, nuts, seeds, and legumes. (3) Eat Better. Eat small portions. Shop at the grocery with a list and do not stray from it. Tips for a healthy diet include: Limit sodium intake to less than 1500mg daily, avoid prepackaged, processed, and fast foods, choose a diet rich in fruits, vegetables, and whole grain, high fiber foods, and limit saturated & cholesterol in your diet. (4) Manage Blood Pressure. If you have high blood pressure, you should have a cuff at home so that you can check your blood pressure regularly. Be sure you have a good cuff. An arm one is generally better than a wrist one. Bring the cuff to a doctor's appointment to validate that the measurements that your cuff are taking are accurate. Take your blood pressure twice daily when you are sitting down and relaxing. Record the numbers in a log and bring this log with you to your doctors' appointments. (5) Lose Weight if your BMI is above 25. A healthy BMI is between 19-25. To calculate Your BMI, you may use a Standard BMI Calculator on the NIH BMI website: <www.nhlbi.nih.gov/guidelines/obesity/BMI/bmicalc.htm>. Weigh oneself daily. If you are overweight, set a goal to lose weight. A pound a week loss if needed is a good target. (6) Reduce Blood Sugar. Limit foods and liquids with "added sugars." (Added sugars include sucrose, fructose, glucose, maltose, dextrose, high fructose corn syrup, corn syrup, concentrated fruit juice and honey). (7) Stop Smoking. If you smoke, quitting smoking is one of the best things that you can do for your health. Smoking increases your risk of heart attack, stroke, and peripheral vascular disease, which is a build-up of plaque in your arteries. Please discard all the cigarettes and lighters in your house. Have a plan for what you will do when you have the urge to smoke. Direct and second- hand smoke shortens your life as well as the lives of your family, friends and others around you. For your health and the health of those around you, please consider quitting! Proper Bending Body Mechanics: Maintain a wide stance with one foot slightly in front of the other. Keep your back straight. Bend utilizing the strength in your hips and knees. Do not bend at the waist. Maintain the lifted object at your waist-level close to your body. Avoid lifting weight that causes immediately pain or pain anywhere in the body afterwards. Smoking/Nicotine If there was ever one thing that you could do to increase your overall health, decrease your risk of cardiovascular problems by about 39% the second you make the choice, it is to STOP SMOKING. Your body's most instant gratification is the second you stop smoking. We have all heard the studies, read the articles but it is true, smoking is extremely bad for your overall health, and moreover it is detrimental to your bone health. Nicotine, IN ANY FORM, kills bone cells, prevents your body from healing fractures, and significantly prolongs healing after surgery. In spine surgery specifically, it increases your risk of not healing your bones to create a fusion and increases your risk of having a revision surgery due to this up to 60%. I know it is hard. I know it feels impossible. But there are ways. Take control of your life. We are here to help you through it. And when you are ready, ask us and we can direct you to help if you desire. Use the START Plan to Quit Smoking (please visit the Helpguide[employer]org website listed below for more information): S = Set a quit date. Choose a date within the next 2 weeks, so you have enough time to prepare without losing your motivation to quit. If you mainly smoke at work, quit on the weekend, so you have a few days to adjust to the change. T = Tell family, friends, and co-workers that you plan to quit. Let your friends and family in on your plan to quit smoking and tell them you need their support and encouragement to stop. Look for a quit lisa who wants to stop smoking as well. You can help each other get through the rough times. A = Anticipate and plan for the challenges you'll face while quitting. Most people who begin smoking again do so within the first 3 months. You can help yourself make it through by preparing ahead for common challenges, such as nicotine withdrawal and cigarette cravings. R = Remove cigarettes and other tobacco products from your home, car, and work. Throw away all your cigarettes (no emergency pack!), lighters, ashtrays, and matches. Wash your clothes and freshen up anything that smells like smoke. Shampoo your car, clean your drapes and carpet, and steam your furniture. T = Talk to your doctor about getting help to quit. Your doctor can prescribe medication to help with withdrawal and suggest other alternatives. If you can't see a doctor, you can get many products over the counter at your local pharmacy or grocery store, including the nicotine patch, nicotine lozenges, and nicotine gum. Resources for Quitting Smoking: <https://www.[place].gov/documents/[facility]/Quit_Tobacco_Resources_for_patients_313 480_7.pdf> Supplementation: Take recommended dosages of Vitamin D and Calcium to help fortify your bones and help them to heal. See your health maintenance packet for dosages and recommended levels. DVT/VTE prophylaxis: You will be given compression stockings from the hospital. Wear these daily for the first two weeks after surgery. You may take them off at night. You may be prescribed a medication to help thin your blood. Take this as directed. If you are not prescribed this medication, early and frequent ambulation has been shown to be the best prophylaxis to deep vein thrombosis and sequelae related to this event. Discharge Disposition: TRANSFER TO SNF/ECF
--- NOTE | 2025-05-10 13:57 | PN ---
PROGRESS NOTE DATE OF SERVICE: 05/10/2025 SUBJECTIVE: This is a 74-year-old woman who was admitted after L3 decompressive fracture had a fall yesterday. PT/OT is evaluating the patient. No chest pain. No palpitation. White count is normalized. PHYSICAL EXAMINATION: VITAL SIGNS: Pulse 89, blood pressure 112/64, and respirations 18. CHEST: Clear to auscultation. ABDOMEN: Soft. LABORATORY DATA: Hemoglobin 9.2, white count is normal. ASSESSMENT: 1. Status post L3 decompression and fusion. 2. Elevated WBC possibly reactive improved. 3. Hypertension. 4. Diabetes mellitus, type 2. 5. Gait dysfunction. RECOMMENDATION: Recommend to continue current management and continue symptomatic treatment. Otherwise, incentive spirometry. Repeat labs and Further recommendations to follow. MMODL / IJN: [id number] / MTDD
== END 2025-05-10 12:55 | DRG 427 ==
LOC: 2ORMAIN 05:35 → 4SSUR 14:29
PROVIDERS: ADMIT Orthopaedic Surgery; ATTEND Orthopaedic Surgery
PROC: 0SG30AJ Fusion of Lumbosacral Joint with Interbody Fusion Device, Posterior Approach, Anterior Column, Open Approach (ICD-10-PCS; 2025-05-05)
PROC: 0SG3071 Fusion of Lumbosacral Joint with Autologous Tissue Substitute, Posterior Approach, Posterior Column, Open Approach (ICD-10-PCS; 2025-05-05)
PROC: 0SG804Z Fusion of Left Sacroiliac Joint with Internal Fixation Device, Open Approach (ICD-10-PCS; 2025-05-05)
PROC: 0SG704Z Fusion of Right Sacroiliac Joint with Internal Fixation Device, Open Approach (ICD-10-PCS; 2025-05-05)
PROC: 0SG1071 Fusion of 2 or more Lumbar Vertebral Joints with Autologous Tissue Substitute, Posterior Approach, Posterior Column, Open Approach (ICD-10-PCS; 2025-05-05)
PROC: 01NB0ZZ Release Lumbar Nerve, Open Approach (ICD-10-PCS; 2025-05-05)
PROC: 01NR0ZZ Release Sacral Nerve, Open Approach (ICD-10-PCS; 2025-05-05)
PROC: 0ST20ZZ Resection of Lumbar Vertebral Disc, Open Approach (ICD-10-PCS; 2025-05-05)
PROC: 00UT07Z Supplement Spinal Meninges with Autologous Tissue Substitute, Open Approach (ICD-10-PCS; 2025-05-05)
PROC: 0QH304Z Insertion of Internal Fixation Device into Left Pelvic Bone, Open Approach (ICD-10-PCS; 2025-05-05)
PROC: 0QH204Z Insertion of Internal Fixation Device into Right Pelvic Bone, Open Approach (ICD-10-PCS; 2025-05-05)
PROC: 0QS00ZZ Reposition Lumbar Vertebra, Open Approach (ICD-10-PCS; 2025-05-05)
PROC: 0ST40ZZ Resection of Lumbosacral Disc, Open Approach (ICD-10-PCS; 2025-05-05)
PROC: 8E0WXBZ Computer Assisted Procedure of Trunk Region (ICD-10-PCS; 2025-05-05)
PROC: 0SG10AJ Fusion of 2 or more Lumbar Vertebral Joints with Interbody Fusion Device, Posterior Approach, Anterior Column, Open Approach (ICD-10-PCS; principal; 2025-05-05 07:30)
DX: M47.26 Other spondylosis with radiculopathy, lumbar region (principal); G96.11 Dural tear; E11.9 Type 2 diabetes mellitus without complications; I10 Essential (primary) hypertension; M25.78 Osteophyte, vertebrae; M43.16 Spondylolisthesis, lumbar region; M48.061 Spinal stenosis, lumbar region without neurogenic claudication; M48.062 Spinal stenosis, lumbar region with neurogenic claudication; M47.27 Other spondylosis with radiculopathy, lumbosacral region; M48.07 Spinal stenosis, lumbosacral region; M46.1 Sacroiliitis, not elsewhere classified; W19.XXXA Unspecified fall, initial encounter; Z86.19 Personal history of other infectious and parasitic diseases; Z79.84 Long term (current) use of oral hypoglycemic drugs; Z79.899 Other long term (current) drug therapy; Z79.83 Long term (current) use of bisphosphonates
CPT/HCPCS: 71045; 72100; 72131; 80048; 81003; 84145; 85025; 86140; 86850; 86900; 86901; 94760

== ENCOUNTER → 2025-06-22 | Outpatient (CLI) | payer MEDICARE, BC ==
[2025-06-22 09:56] VITALS: BP 102/62; PULSE 89; RESP 16; TEMP 97.4
--- NOTE | 2025-06-22 15:56 | P.PAINPG ---
PQRS Measure Charge Sheet Comment: HISTORY OF PRESENT ILLNESS: A 74 yr old female w at side presents today w severe and chronic LBP x 3 mo secondary to L3-Pelvis Decompression/ Fusion for medication refills. Pt states pain level is provoked at 8 /10 in intensity, constant, localized in the lumbar spine, predominantly axial, achy in character w occasional shooting pain towards the LLE. Pain is provoked by PT x 6 wks which ended in May 2024 and provoked intractable pain, standing and laying supine in certain positions. Pain is alleviated by heat, ice, medications, repositioning and rest. L3-Pelvis Decompression/ Fusion rescheduled to May 2025 as pt was on antibiotics for RLE ulceration. Interventional procedures include OTONIEL L5-S1 x1 (Mar 2024) Medications include [place] 7.5/325mg #90, Neurontin 150mg #60, Naproxen, Flexeril 5mg #90 REVIEW OF ORGAN SYSTEMS: CONSTITUTIONAL: No fevers or chills. No recent weight loss. NEUROLOGICAL: + numbness and tingling along the distal extremities. No seizure disorders or headaches. MUSCULOSKELETAL: + pain PSYCHIATRIC: Denies current depression or suicidal thoughts. Physical Examinations : Constitutional : Cooperative , not in acute distress . Neurologic : Cranial nerve II to XII intact. No focal neurological deficits. Psychiatric : alert & oriented x 3. Matching mood & appropriate affect. Judgment & insight intact. Musculoskeletal : Cervical Spine Motor strength in the deltoid and biceps: Normal right side. Normal Left side Motor strength biceps and the wrist extensors: Normal right side . Normal left side Motor strength in the triceps muscle: Normal right side. Normal left side Deep tendon reflexes: Normal at the biceps. Normal at Brachioradialis. Normal at triceps Vertebral body tenderness to deep palpation over Cervical facet loading test: positive bilaterally Spurling test: positive bilaterally Neck distraction test: positive bilaterally Camille sign: positive bilaterally Lumbar spine Motor strength lower extremities ,thigh and legs 5/5 Right side , 5/5 Left side Deep tendon reflexes : Normal Knee Jerk. Normal Ankle Jerk Vertebral body tenderness over L5 Shelton Test positive L5-S1 Lumbar facet Loading Test: positive Right / positive Left Range of motion of the lumbar spine Flexion 30 degrees, extension 10 degrees Straight Leg Raise test: Left/ Right positive at degree Simin test: positive right / positive left. Severe tenderness over the Sacroiliac joint on the Right / Left sides Gaenslen test: positive bilaterally Seated flexion test: positive bilaterally. Sacral spine : Severe tenderness over the Sacroiliac joint: right side / left side Range of motion: Flexion of the lumbar spine <60 degrees Range of motion: Extension of the lumbar spine <20 degrees Gaenslen's Test positive Simin test: positive right side / left side Thigh Thrust Test Sacral Thrust Test Imaging: MRI non contrast of the lumbar spine from 01/10/2024 reviewed Assessment/ Plan : L3-Pelvis Decompression/ Fusion, Lumbar radiculopathy Recommendation of medication management. Opiate/ Narcotic agreement renewed 06/22/25. Neurontin 100mg #90 w 2 RF. [place] 7.5/325mg #90 w 2 RF. UDS 06/22/25. Use, side effects, adverse reactions, safe storage discussed. All questions answered. I have spent greater than 30 minutes on patient care today. Dr Ortez was available by phone for the evaluation of this patient. The time was used to review the medical records including relevant urine studies and Prescription history (MAPs), review of the available imaging, evaluation and examination of the patient, coordination of care with the medical staff and if applicable referring physicians, as well as creation of the medical record - Pain Location Bilateral Lower Back Non-Pharmacological Interventions: Heat, Ice, Inactivity, Physical Therapy, Position/Reposition, Sitting, Standing Pharmacological Interventions: Block, Epidural, PRN Medication, Scheduled Medication, Topical Medication PQRS Narrative: Hx Alcohol Use (MH) No Home Medications: Ambulatory Orders Calcium Carbonate [Calcium] 600 mg PO DAILY 07/13/20 Pravastatin Sodium [Pravachol] 40 mg PO QAM 07/13/20 amLODIPine BESYLATE/BENAZEPRIL [amLODIPine BESYLATE/BENAZEPRIL 5-10 MG] 1 tab PO QAM 07/13/20 Omeprazole 20 mg PO QAM 03/12/24 Oxybutynin Chloride [oxyBUTYnin chloride ER] 15 mg PO QAM 03/12/24 Alendronate Sodium [Fosamax] 70 mg PO FR 08/13/24 Ascorbic Acid [Vitamin C] 250 mg PO DAILY 08/13/24 HYDROcodone/APAP 7.5-325MG [[place] 7.5-325] 1 tab PO TID PRN 30 Days #90 tab 03/16/25 Furosemide [Lasix] 20 mg PO DAILY 05/03/25 metFORMIN HCL [Glucophage] 500 mg PO DAILY 05/03/25 Acetaminophen Tab [Tylenol] 650 mg PO Q6HR tab 05/10/25 Aspirin 81 mg PO DAILY tab 05/10/25 Cyclobenzaprine [Flexeril] 5 mg PO TID PRN tab 05/10/25 Ferrous Sulfate [Iron (65 MG Elemental)] 325 mg PO DAILY #30 tab 05/10/25 Gabapentin 300 mg PO TID #30 cap 05/10/25 HYDROcodone/APAP 10-325MG [[place] 10-325] 1 tab PO Q6HR PRN 7 Days #28 tab 05/10/25 Lactulose [Cephulac] 20 gm PO BID PRN ml 05/10/25 Magnesium Hydroxide [Milk of Magnesia] 2,400 mg PO DAILY PRN ml 05/10/25 Sennosides/Docusate Sodium [Senna-S 8.6-50 mg Tablet] 2 each PO DAILY PRN #30 tablet 05/10/25 cefaDROXiL [Duricef] 500 mg PO Q12HR 5 Days #10 cap 05/10/25 polyethylene glycoL 3350 [Miralax] 17 gm PO DAILY PRN #21 packet 05/10/25 Controlled Substance Measures - Controlled Substance Measures Is patient prescribed a controlled substance at discharge?: Yes When asked, does pt state using other controlled substances?: No If prescribed controlled substance>3 days was MAPS reviewed?: Yes If Rx opioid, was Start Talking consent form obtained?: Yes Was information provided regarding opioid addiction?: Yes
== END ==
LOC: PNWHC3 08:59
PROVIDERS: ATTEND Specialist
DX: M47.26 Other spondylosis with radiculopathy, lumbar region (principal); M43.26 Fusion of spine, lumbar region
CPT/HCPCS: 80307; G0463; 99212